=== PATIENT | female | born 1975 | race African-American/Black ===

== ENCOUNTER 2020-03-18 06:05 | Emergency (ER) | payer OTHER, SELFPAY ==
--- NOTE | ~2020-03-18 | XR_ITS ---
EXAMINATION: XR hip RT 2V w AP pelvis INDICATION: Right hip pain TECHNIQUE: AP view of the pelvis and two views of the right hip are obtained. COMPARISON: None available FINDINGS: Bone alignment is normal. There is no fracture. The soft tissues are unremarkable. There is mild spondylosis at L5-S1. IMPRESSION: 1. No acute osseous abnormality. Reviewed, dictated and finalized at location A.
[2020-03-18 06:06] VITALS: BP 108/60; PULSE 74; RESP 20; TEMP 36.7; O2SAT 100
[2020-03-18] MEDS: IBUPROFEN 600 MG TABLET PO (06:40)
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
[2020-03-18 07:33] VITALS: BP 118/86; PULSE 86; RESP 17; O2SAT 98
== END 2020-03-18 07:30 | disposition home or self-care (01) ==
PROVIDERS: Emergency Provider Emergency Medicine; PCP Family Medicine
DX: S70.01XA Contusion of right hip, initial encounter (principal); V49.40XA Driver injured in collision with unspecified motor vehicles in traffic accident, initial encounter
CPT/HCPCS: 73502; 99283; A9270

== ENCOUNTER 2020-06-15 15:46 | Outpatient (CLI) | payer OTHER, SELFPAY ==
--- NOTE | ~2020-06-15 | MM_ITS ---
EXAMINATION: MM screening kieran BI w amalia HISTORY: Screening mammogram TECHNIQUE: Craniocaudal and mediolateral oblique 3-D tomosynthesis images were obtained and synthetic 2-D images were generated. CAD analysis was submitted and interpreted. COMPARISON: 06/13/2019, 06/09/2018, 06/02/2017 bilateral digital screening mammogram examinations BREAST PARENCHYMAL COMPOSITION: There are scattered areas of fibroglandular density. FINDINGS: There is no evidence of suspicious mass, calcification, or architectural distortion to sugg est malignancy in either breast. There has been no suspicious interval change. IMPRESSION: 1. No mammographic evidence of malignancy. 2. Recommend routine screening mammography in one year. BI-RADS Category 1: Negative Reviewed, dictated and finalized at location A.
== END 2020-06-15 15:47 | disposition home or self-care (01) ==
LOC: ANHIMG 15:47
PROVIDERS: PCP Family Medicine; Visit Provider Student in an Organized Health Care Education/Training Program
DX: Z12.31 Encounter for screening mammogram for malignant neoplasm of breast (principal)
CPT/HCPCS: 77063; 77067

== ENCOUNTER 2021-06-18 15:50 | Outpatient (CLI) | payer OTHER, SELFPAY ==
--- NOTE | ~2021-06-18 | MM_ITS ---
EXAMINATION: MM screening kieran BI w amalia HISTORY: Screening mammogram TECHNIQUE: Craniocaudal and mediolateral oblique 3-D tomosynthesis images were obtained and synthetic 2-D images were generated. CAD analysis was submitted and interpreted. COMPARISON: 06/15/2020, 06/13/2019, 06/09/2018 bilateral digital screening mammogram examinations BREAST PARENCHYMAL COMPOSITION: There are scattered areas of fibroglandular density. FINDINGS: There is no evidence of suspicious mass, calcification, or architectural distortion to sugg est malignancy in either breast. There has been no suspicious interval change. IMPRESSION: 1. No mammographic evidence of malignancy. 2. Recommend routine screening mammography in one year. BI-RADS Category 1: Negative Reviewed, dictated and finalized at location A.
== END 2021-06-18 15:51 | disposition home or self-care (01) ==
LOC: ANHIMG 15:52
PROVIDERS: PCP Family Medicine; Visit Provider Student in an Organized Health Care Education/Training Program
DX: Z12.31 Encounter for screening mammogram for malignant neoplasm of breast (principal)
CPT/HCPCS: 77063; 77067

== ENCOUNTER 2022-07-23 16:17 | Outpatient (CLI) | payer BC, SELFPAY ==
--- NOTE | ~2022-07-23 | MM_ITS ---
EXAMINATION: MM screening kieran BI w amalia HISTORY: Screening mammogram TECHNIQUE: Craniocaudal and mediolateral oblique 3-D tomosynthesis images were obtained and synthetic 2-D images were generated. CAD analysis was submitted and interpreted. COMPARISON: 06/18/2021, 06/15/2020, 06/13/2019 bilateral screening mammogram examinations BREAST PARENCHYMAL COMPOSITION: There are scattered areas of fibroglandular density. FINDINGS: There is a 1 cm circumscribed low-density opacity with halo sign in the upper outer quadran t of the right breast at approximately 10:00 position. The mammographic appearance is benign. There i s no evidence of suspicious mass, calcification, or architectural distortion to suggest malignancy in either breast. There has been no suspicious interval change. IMPRESSION: 1. No mammographic evidence of malignancy. 2. Recommend routine screening mammography in one year. BI-RADS Category 2: Benign finding(s). Reviewed, dictated and finalized at location A. 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
== END 2022-07-23 16:18 | disposition home or self-care (01) ==
PROVIDERS: PCP Family Medicine; Visit Provider Student in an Organized Health Care Education/Training Program
DX: Z12.31 Encounter for screening mammogram for malignant neoplasm of breast (principal)
CPT/HCPCS: 77063; 77067

== ENCOUNTER 2023-07-27 14:44 | Outpatient (CLI) | payer BC, SELFPAY ==
--- NOTE | ~2023-07-27 | MM_ITS ---
EXAMINATION: MM screening kieran BI w amalia HISTORY: Screening mammogram TECHNIQUE: Craniocaudal and mediolateral oblique 3-D tomosynthesis images were obtained and synthetic 2-D images were generated. CAD analysis was submitted and interpreted. COMPARISON: 07/23/2022, 06/18/2021, 06/15/2020 bilateral screening mammogram examinations BREAST PARENCHYMAL COMPOSITION: There are scattered areas of fibroglandular density. FINDINGS: There is no evidence of suspicious mass, calcification, or architectural distortion to sugg est malignancy in either breast. There has been no suspicious interval change. IMPRESSION: 1. No mammographic evidence of malignancy. 2. Recommend routine screening mammography in one year. BI-RADS Category 1: Negative Reviewed, dictated and finalized at location A. 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
== END 2023-07-27 14:45 | disposition home or self-care (01) ==
LOC: CHSIMG 14:45
PROVIDERS: PCP Family Medicine; Visit Provider Family Medicine
DX: Z12.31 Encounter for screening mammogram for malignant neoplasm of breast (principal)
CPT/HCPCS: 77063; 77067

== ENCOUNTER 2023-08-28 09:34 | Emergency (ER) | payer BC, SELFPAY ==
[2023-08-28] VITALS (9 sets, daily range): BP systolic 104–141; BP diastolic 56–93; PULSE 63–89; RESP 13–20; TEMP 36.5; O2SAT 100
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
[2023-08-28] MEDS: SODIUM CHLORIDE 0.9% IV 1,000 ML 999 ML IV CONT ×2 (10:28→11:18)
[2023-08-28 10:33] LABS: Basophils Percent Auto 0.2 % (0.2-1.2); Eosinophils Percent Auto 0.2 % (0-4.4); Hematocrit 42.8 % (37.0-47.0); Hemoglobin 14.5 g/dL (12.0-15.0); Immature Granulocyte Absolute 0.02 K/mm3 (0.00-0.031); Immature Granulocyte Percent A 0.3 % (0-0.5); Lymphocytes Absolute Auto 1.67 K/mm3 (0.9-3.2); Lymphocytes Percent Auto 26.9 % (18.3-44.2); Mean Corpuscular HGB Conc 33.9 g/dl (32-36); Mean Corpuscular Hemoglobin 30.1 pg (26-34); Mean Platelet Volume 9.1 fl (7.4-10.4); Monocytes Absolute Auto 0.6 K/mm3 (0.1-0.6); Monocytes Percent Auto 10.3 % (2.6-8.5); Neutrophils Absolute Auto 3.9 K/mm3 (1.3-6.7); Neutrophils Percent Auto 62.1 % (45.5-73.1); Platelet Count Result 346 k/mm3 (150-375); Red Blood Count 4.81 M/mm3 (4.2-5.4); Red Cell Distribution Width 12.2 % (11.5-14.5); White Blood Count 6.2 K/mm3 (4.5-10.0)
[2023-08-28 11:00] LABS: Alanine Aminotransferase 33 U/L (6-35); Albumin Level 4.6 g/dL (3.5-5.1); Alkaline Phosphatase 50 U/L (38-126); Anion Gap 10 mmol/L (8-16); Aspartate Amino Transferase 36 U/L (14-36); Bilirubin,Total 1.1 mg/dL (0.2-1.3); Blood Urea Nitrogen 9 mg/dL (7-17); Calcium 9.5 mg/dL (8.4-10.2); Carbon Dioxide 27 mmol/L (22-30); Chloride 93 mmol/L (98-107); Estimated CRCL calculation 75 ml/min; Estimated Glomerular Filt Rate > 60; Glucose 125 mg/dL (65-110); Magnesium 2.1 mg/dL (1.6-2.3); Potassium 2.8 mmol/L (3.4-5.0); Sodium 130 mmol/L (137-145)
--- NOTE | 2023-08-28 11:01 | ECG_ITS ---
Measurements Intervals [place] Rate: 62 P: 70 NE: 171 QRS: 2 QRSD: 89 T: 71 QT: 503 QTc: 513 Interpretive Statements SINUS RHYTHM POSSIBLE LEFT ATRIAL ENLARGEMENT [-0.1mV P WAVE IN V1/V2] MODERATE T-WAVE ABNORMALITY, CONSIDER ANTEROLATERAL ISCHEMIA [-0.1+ mV T WAVE IN V3- V6] NO PREVIOUS ECG AVAILABLE FOR COMPARISON Electronically Signed On 08-28-2023 16:36:51 AIR EXPORT LOGISTICS MANAGER by Lencho oHlt M.D.
[2023-08-28] MEDS: POTASSIUM CHLORIDE 20 MEQ ER TABLET 40 MEQ PO (11:17)
[2023-08-28 11:20] LABS: Appearance Urine Cloudy (Clear); Bacteria Urine 1+ /hpf; Bilirubin Urine 1+ (Negative); Blood Urine 2+ (Negative); Color Urine Dark Yellow (Yellow); Glucose Urine UA Negative (Negative); Ketones Urine Trace mg/dL (Negative); Leukocyte Esterase Ur Trace LEU/UL (Negative); Need Manual Microscopic Reviewed; Nitrate Urine Negative (Negative); Non Pathogenic Casts >20; Protein Urine 1+ mg/dL (Negative); Specific Grav Ur 1.021 (1.001-1.035); Squamous Epithelial Cell Urine Occasional /hpf (Few)
[2023-08-28 11:21] LABS: Influenza A QL RT-PCR Negative (Negative); Influenza B QL RT-PCR Negative (Negative); RSV RNA, RT-PCR Negative (Negative); SARS-CoV-2 RNA PCR Negative (Negative)
[2023-08-28 11:36] LABS: Add Urine Microscopic? YES
[2023-08-28] MEDS: KCL 20 MEQ/SW 100 ML 100 ML 50 MEQ IVPB (11:50)
[2023-08-28 14:07] LABS: Anion Gap 8 mmol/L (8-16); Blood Urea Nitrogen 7 mg/dL (7-17); Calcium 8.4 mg/dL (8.4-10.2); Carbon Dioxide 26 mmol/L (22-30); Chloride 101 mmol/L (98-107); Estimated CRCL calculation 83 ml/min; Estimated Glomerular Filt Rate > 60; Glucose 98 mg/dL (65-110); Potassium 3.3 mmol/L (3.4-5.0); Sodium 135 mmol/L (137-145)
--- NOTE | 2023-08-28 15:02 | ECG_ITS ---
Measurements Intervals [place] Rate: 66 P: 60 NM: 172 QRS: -1 QRSD: 87 T: 68 QT: 404 QTc: 424 Interpretive Statements SINUS RHYTHM NONSPECIFIC T-WAVE ABNORMALITY COMPARED TO ECG 08/28/2023 11:09:33 NO SIGNIFICANT CHANGES Electronically Signed On 08-28-2023 16:43:16 ADJUNCT PHILOSOPHY FACULTY by Lencho Holt M.D.
[2023-08-28] MEDS: POTASSIUM CHLORIDE 20 MEQ PACKET (FOR LIQUID) PO (15:30)
[2023-08-28] MEDS: MAGNESIUM SULF 2 GM/WATER 50ML 2 GM/50 ML BAG IVPB (15:31)
== END 2023-08-28 17:25 | disposition home or self-care (01) ==
PROVIDERS: Emergency Provider Physician Assistant; PCP Family Medicine
DX: E87.6 Hypokalemia (principal); R63.0 Anorexia; G35 Multiple sclerosis; N31.9 Neuromuscular dysfunction of bladder, unspecified; M47.814 Spondylosis without myelopathy or radiculopathy, thoracic region; R94.31 Abnormal electrocardiogram [ECG] [EKG]
CPT/HCPCS: 36415; 80048; 80053; 81001; 81025; 83735; 85025; 87086; 87637; 93005; 96361; 96365; 96366; 96367; 99284; A9270; J3475; J3480; J7030

== ENCOUNTER 2023-10-05 01:34 | Day surgery (SDC) | payer BC, SELFPAY ==
[2023-09-08 14:24] VITALS: BMI 22.6
--- NOTE | 2023-10-02 09:09 | SUR.PREOP ---
Patient called regarding upcoming procedure. Reviewed preop instructions, appointment times, and procedure prep.
[2023-10-05 09:08] VITALS: BP 117/76; PULSE 86; RESP 16; TEMP 36.1; O2SAT 100; BMI 22.6
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
[2023-10-05] MEDS: LACTATED RINGERS 1,000 ML 150 ML IV CONT (09:33)
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
[2023-10-05 09:59] VITALS: BP 101/65; PULSE 90; RESP 23; O2SAT 100
[2023-10-05 10:09] VITALS: BP 110/62; PULSE 92; RESP 22; O2SAT 100
[2023-10-05 10:19] VITALS: BP 114/64; PULSE 82; RESP 23; O2SAT 98
== END 2023-10-05 10:27 | disposition home or self-care (01) ==
PROVIDERS: PCP Family Medicine; Visit Provider Internal Medicine Gastroenterology
PROC: 0DJD8ZZ Inspection of Lower Intestinal Tract, Via Natural or Artificial Opening Endoscopic (ICD-10-PCS; CPT 45378; principal; 2023-10-05 10:00)
DX: Z12.11 Encounter for screening for malignant neoplasm of colon (principal); K64.8 Other hemorrhoids; G35 Multiple sclerosis; N31.2 Flaccid neuropathic bladder, not elsewhere classified; F12.90 Cannabis use, unspecified, uncomplicated; Z79.85 Long-term (current) use of injectable non-insulin antidiabetic drugs; Z98.890 Other specified postprocedural states; Z82.49 Family history of ischemic heart disease and other diseases of the circulatory system; Z80.49 Family history of malignant neoplasm of other genital organs
CPT/HCPCS: 45378; J2704; J7120

== ENCOUNTER 2024-01-13 08:41 | Outpatient (CLI) | payer BC, SELFPAY | END 2024-01-13 08:42 | PROVIDERS: PCP Family Medicine; Visit Provider Nurse Practitioner Family | DX: M25.561 Pain in right knee (principal) | CPT/HCPCS: 73562 ==

== ENCOUNTER 2024-06-09 15:52 | Emergency (ER) | payer BC, SELFPAY ==
[2024-06-09 16:03] VITALS: BP 104/87; PULSE 75; RESP 16; TEMP 36.3; O2SAT 100
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
[2024-06-09] MEDS: ONDANSETRON INJ 4 MG/2 ML VIAL IV PUSH (16:39)
[2024-06-09] MEDS: LACTATED RINGERS 1,000 ML 999 ML IV CONT ×2 (16:40→17:44)
[2024-06-09 16:47] LABS: Basophils Percent Auto 0.1 % (0.2-1.2); Hematocrit 43.3 % (37.0-47.0); Hemoglobin 15.3 g/dL (12.0-15.0); Immature Granulocyte Absolute 0.02 K/mm3 (0.00-0.031); Immature Granulocyte Percent A 0.2 % (0-0.5); Lymphocytes Absolute Auto 0.93 K/mm3 (0.9-3.2); Lymphocytes Percent Auto 8.9 % (18.3-44.2); Mean Corpuscular HGB Conc 35.3 g/dl (32-36); Mean Corpuscular Hemoglobin 31.6 pg (26-34); Mean Corpuscular Volume 89.5 fl (80-100); Mean Platelet Volume 9.2 fl (7.4-10.4); Monocytes Absolute Auto 0.4 K/mm3 (0.1-0.6); Monocytes Percent Auto 3.5 % (2.6-8.5); Neutrophils Absolute Auto 9.1 K/mm3 (1.3-6.7); Neutrophils Percent Auto 87.3 % (45.5-73.1); Platelet Count Result 320 k/mm3 (150-375); Red Blood Count 4.84 M/mm3 (4.2-5.4); Red Cell Distribution Width 12.7 % (11.5-14.5); White Blood Count 10.4 K/mm3 (4.5-10.0)
[2024-06-09 16:57] LABS: Alanine Aminotransferase 30 U/L (6-35); Albumin Level 5.5 g/dL (3.5-5.1); Alkaline Phosphatase 81 U/L (38-126); Anion Gap 16 mmol/L (4-12); Aspartate Amino Transferase 41 U/L (14-36); Bilirubin,Total 1.1 mg/dL (0.2-1.3); Blood Urea Nitrogen 14 mg/dL (7-17); Calcium 9.6 mg/dL (8.4-10.2); Carbon Dioxide 21 mmol/L (22-30); Chloride 96 mmol/L (98-107); Estimated CRCL calculation 93 ml/min; Estimated Glomerular Filt Rate > 60; Glucose 147 mg/dL (65-110); Lipase 81 U/L (23-300); Potassium 3.3 mmol/L (3.4-5.0); Sodium 133 mmol/L (137-145)
[2024-06-09] MEDS: METOCLOPRAMIDE HCL INJ 10 MG/2 ML VIAL IV PUSH (17:45)
[2024-06-09] MEDS: POTASSIUM CHLORIDE 20 MEQ ER TABLET 40 MEQ PO (17:45)
[2024-06-09 17:47] VITALS: BP 137/78; PULSE 68; RESP 16; TEMP 36.3
[2024-06-09 19:06] VITALS: BP 120/68; PULSE 70; RESP 18; TEMP 36.4; O2SAT 100
== END 2024-06-09 19:08 | disposition home or self-care (01) ==
PROVIDERS: Emergency Provider Emergency Medicine; PCP Family Medicine
DX: R11.2 Nausea with vomiting, unspecified (principal); E87.6 Hypokalemia; G35 Multiple sclerosis; N31.9 Neuromuscular dysfunction of bladder, unspecified; Z86.73 Personal history of transient ischemic attack (TIA), and cerebral infarction without residual deficits; Z91.410 Personal history of adult physical and sexual abuse; Z79.82 Long term (current) use of aspirin; Z79.02 Long term (current) use of antithrombotics/antiplatelets; Z79.899 Other long term (current) drug therapy
CPT/HCPCS: 36415; 80053; 83690; 85025; 96361; 96374; 96375; 99284; A9270; J2405; J2765; J7120

== ENCOUNTER 2024-07-02 19:43 | Emergency (ER) | payer BC, SELFPAY ==
[2024-07-02] VITALS (13 sets, daily range): BP systolic 107–140; BP diastolic 57–91; PULSE 75–95; RESP 14–18; TEMP 36.3; O2SAT 91–100
[2024-07-02 20:43] LABS: Basophils Percent Auto 0.2 % (0.2-1.2); Hematocrit 38.2 % (37.0-47.0); Hemoglobin 13.8 g/dL (12.0-15.0); Immature Granulocyte Absolute 0.02 K/mm3 (0.00-0.031); Immature Granulocyte Percent A 0.2 % (0-0.5); Lymphocytes Absolute Auto 0.65 K/mm3 (0.9-3.2); Lymphocytes Percent Auto 7.5 % (18.3-44.2); Mean Corpuscular HGB Conc 36.1 g/dl (32-36); Mean Corpuscular Hemoglobin 31.6 pg (26-34); Mean Corpuscular Volume 87.4 fl (80-100); Mean Platelet Volume 9.3 fl (7.4-10.4); Monocytes Absolute Auto 0.4 K/mm3 (0.1-0.6); Monocytes Percent Auto 4.5 % (2.6-8.5); Neutrophils Absolute Auto 7.6 K/mm3 (1.3-6.7); Neutrophils Percent Auto 87.6 % (45.5-73.1); Platelet Count Result 289 k/mm3 (150-375); Red Blood Count 4.37 M/mm3 (4.2-5.4); Red Cell Distribution Width 12.6 % (11.5-14.5); White Blood Count 8.7 K/mm3 (4.5-10.0)
[2024-07-02 20:53] LABS: Alanine Aminotransferase 27 U/L (6-35); Albumin Level 4.7 g/dL (3.5-5.1); Alkaline Phosphatase 65 U/L (38-126); Anion Gap 16 mmol/L (4-12); Aspartate Amino Transferase 31 U/L (14-36); Bilirubin,Total 0.9 mg/dL (0.2-1.3); Blood Urea Nitrogen 12 mg/dL (7-17); Calcium 9.8 mg/dL (8.4-10.2); Carbon Dioxide 20 mmol/L (22-30); Chloride 98 mmol/L (98-107); Estimated CRCL calculation 93 ml/min; Estimated Glomerular Filt Rate > 60; Glucose 156 mg/dL (65-110); INR 1.1; Lipase 84 U/L (23-300); Magnesium 1.7 mg/dL (1.6-2.3); Potassium 3.2 mmol/L (3.4-5.0); Prothrombin Time 14.2 Seconds (11.1-14.7); Sodium 134 mmol/L (137-145)
[2024-07-02 20:54] LABS: Partial Thromboplastin Time 26.7 Seconds (22.3-36.8)
[2024-07-02 21:08] LABS: Add Urine Microscopic? NO; Appearance Urine Clear (Clear); Bilirubin Urine Negative (Negative); Blood Urine Negative (Negative); Color Urine Yellow (Yellow); Glucose Urine UA Negative (Negative); Ketones Urine 3+ mg/dL (Negative); Leukocyte Esterase Ur Negative LEU/UL (Negative); Nitrate Urine Negative (Negative); Protein Urine Negative (Negative); Specific Grav Ur 1.014 (1.001-1.035); pH Urine 8.5 (5.0-9.0)
[2024-07-02] MEDS: POTASSIUM CHLORIDE 20 MEQ PACKET (FOR LIQUID) PO (21:09)
[2024-07-02] MEDS: ONDANSETRON INJ 4 MG/2 ML VIAL IV PUSH (21:10)
[2024-07-02] MEDS: SODIUM CHLORIDE 0.9% IV 1,000 ML 999 ML IV CONT ×2 (21:10→22:37)
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
[2024-07-02] MEDS: FAMOTIDINE 20 MG/2 ML VIAL IV PUSH (22:36)
[2024-07-02 23:07] LABS: Pregnancy On Board Control Positive; Urine Pregnancy Test Negative
[2024-07-02] MEDS: METOCLOPRAMIDE HCL INJ 10 MG/2 ML VIAL IV PUSH (23:18)
--- NOTE | 2024-07-02 23:32 | PC.NURSE ---
Report received from WILLIE Emerson. Assumed care of patient at this time.
[2024-07-03] VITALS: O2SAT 95
== END 2024-07-03 00:16 | disposition home or self-care (01) ==
PROVIDERS: Emergency Medicine; Emergency Provider Physician Assistant; PCP Family Medicine
DX: E86.0 Dehydration (principal); R11.2 Nausea with vomiting, unspecified; G35 Multiple sclerosis; Z86.73 Personal history of transient ischemic attack (TIA), and cerebral infarction without residual deficits
CPT/HCPCS: 36415; 80053; 81003; 81025; 83690; 83735; 85025; 85610; 85730; 96361; 96374; 96375; 99284; A9270; J2405; J2765; J7030

== ENCOUNTER 2024-07-05 12:59 | Emergency (ER) | payer BC, SELFPAY ==
[2024-07-05 13:04] VITALS: BP 117/86; PULSE 80; RESP 20; TEMP 37.1; O2SAT 100
[2024-07-05 13:13] VITALS: RESP 17; O2SAT 98
[2024-07-05 13:16] VITALS: BP 111/77; PULSE 89; RESP 18; O2SAT 98
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
[2024-07-05 14:09] LABS: Basophils Percent Auto 0.3 % (0.2-1.2); Eosinophils Percent Auto 0.3 % (0-4.4); Hematocrit 41.3 % (37.0-47.0); Hemoglobin 14.1 g/dL (12.0-15.0); Immature Granulocyte Absolute 0.02 K/mm3 (0.00-0.031); Immature Granulocyte Percent A 0.3 % (0-0.5); Lymphocytes Absolute Auto 1.24 K/mm3 (0.9-3.2); Lymphocytes Percent Auto 19.1 % (18.3-44.2); Mean Corpuscular HGB Conc 34.1 g/dl (32-36); Mean Corpuscular Hemoglobin 30.7 pg (26-34); Mean Corpuscular Volume 89.8 fl (80-100); Mean Platelet Volume 9.7 fl (7.4-10.4); Monocytes Absolute Auto 0.7 K/mm3 (0.1-0.6); Monocytes Percent Auto 10.5 % (2.6-8.5); Neutrophils Absolute Auto 4.5 K/mm3 (1.3-6.7); Neutrophils Percent Auto 69.5 % (45.5-73.1); Platelet Count Result 327 k/mm3 (150-375); Red Cell Distribution Width 12.6 % (11.5-14.5); White Blood Count 6.5 K/mm3 (4.5-10.0)
[2024-07-05 14:19] LABS: Alanine Aminotransferase 26 U/L (6-35); Alkaline Phosphatase 66 U/L (38-126); Anion Gap 13 mmol/L (4-12); Aspartate Amino Transferase 33 U/L (14-36); Bilirubin,Total 1.1 mg/dL (0.2-1.3); Blood Urea Nitrogen 6 mg/dL (7-17); Calcium 9.9 mg/dL (8.4-10.2); Carbon Dioxide 25 mmol/L (22-30); Chloride 95 mmol/L (98-107); Estimated CRCL calculation 81 ml/min; Estimated Glomerular Filt Rate > 60; Glucose 126 mg/dL (65-110); Lipase 105 U/L (23-300); Magnesium 1.9 mg/dL (1.6-2.3); Potassium 3.1 mmol/L (3.4-5.0); Sodium 133 mmol/L (137-145)
[2024-07-05] MEDS: diphenhydrAMINE HCl INJ 50 MG/ML VIAL 25 MG IV PUSH (14:22)
[2024-07-05] MEDS: HALOPERIDOL LACTATE 5 MG/ML VIAL 2.5 MG IV PUSH (14:22)
[2024-07-05 14:26] VITALS: BP 116/80; PULSE 77; RESP 17; O2SAT 100
[2024-07-05] MEDS: POTASSIUM BICARBONATE 25 MEQ TABEF 50 MEQ PO (14:41)
== END 2024-07-05 15:06 | disposition home or self-care (01) ==
PROVIDERS: Emergency Provider Student in an Organized Health Care Education/Training Program; PCP Family Medicine
DX: R11.0 Nausea (principal); E87.6 Hypokalemia; E87.1 Hypo-osmolality and hyponatremia; G35 Multiple sclerosis; N31.9 Neuromuscular dysfunction of bladder, unspecified; Q21.12 Patent foramen ovale; Q21.19 Other specified atrial septal defect; Z86.73 Personal history of transient ischemic attack (TIA), and cerebral infarction without residual deficits; Z79.82 Long term (current) use of aspirin; Z79.899 Other long term (current) drug therapy
CPT/HCPCS: 36415; 80053; 83690; 83735; 85025; 96374; 96375; 99284; A9270; J1200; J1630

== ENCOUNTER 2024-07-07 11:26 | Observation (INO) | payer BC, SELFPAY ==
[2024-07-07 11:36] VITALS: BP 132/85; PULSE 70; RESP 20; TEMP 36.8; O2SAT 100
[2024-07-07 11:55] LABS: Basophils Percent Auto 0.3 % (0.2-1.2); Eosinophils Percent Auto 0.5 % (0-4.4); Hemoglobin 15.2 g/dL (12.0-15.0); Immature Granulocyte Absolute 0.02 K/mm3 (0.00-0.031); Immature Granulocyte Percent A 0.3 % (0-0.5); Lymphocytes Absolute Auto 1.27 K/mm3 (0.9-3.2); Lymphocytes Percent Auto 19.8 % (18.3-44.2); Mean Corpuscular HGB Conc 35.3 g/dl (32-36); Mean Corpuscular Hemoglobin 31.3 pg (26-34); Mean Corpuscular Volume 88.7 fl (80-100); Mean Platelet Volume 9.1 fl (7.4-10.4); Monocytes Absolute Auto 0.7 K/mm3 (0.1-0.6); Monocytes Percent Auto 10.7 % (2.6-8.5); Neutrophils Absolute Auto 4.4 K/mm3 (1.3-6.7); Neutrophils Percent Auto 68.4 % (45.5-73.1); Platelet Count Result 330 k/mm3 (150-375); Red Blood Count 4.85 M/mm3 (4.2-5.4); Red Cell Distribution Width 12.5 % (11.5-14.5); White Blood Count 6.4 K/mm3 (4.5-10.0)
[2024-07-07 12:06] LABS: Alanine Aminotransferase 28 U/L (6-35); Alkaline Phosphatase 70 U/L (38-126); Anion Gap 12 mmol/L (4-12); Aspartate Amino Transferase 31 U/L (14-36); Bilirubin,Total 1.1 mg/dL (0.2-1.3); Blood Urea Nitrogen 10 mg/dL (7-17); Calcium 9.9 mg/dL (8.4-10.2); Carbon Dioxide 27 mmol/L (22-30); Chloride 93 mmol/L (98-107); Estimated CRCL calculation 68 ml/min; Estimated Glomerular Filt Rate > 60; Glucose 130 mg/dL (65-110); Potassium 3.3 mmol/L (3.4-5.0); Sodium 132 mmol/L (137-145)
[2024-07-07] MEDS: POTASSIUM CHLORIDE 20 MEQ ER TABLET 40 MEQ PO (12:45)
[2024-07-07] MEDS: METOCLOPRAMIDE HCL INJ 10 MG/2 ML VIAL IV PUSH ×2 (13:21→17:50)
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
[2024-07-07 13:50] VITALS: BP 144/77; PULSE 75; RESP 18; TEMP 36.8; O2SAT 99
--- NOTE | 2024-07-07 14:04 | PC.NURSE ---
This patient, Winter Samaniego, was admitted to [address] [place] [address] Room 300-01. Patient/family oriented to hospital policies and general routines including ID bracelet, bed and alarms, visiting hours, pain management, procedures, bathroom and other care routines, personal items, smoking policy, room service/diet, and visiting hours. Information on how to activate the Rapid Response Team has been discussed. Patient/Family are encouraged to report perceived risks to care and to ask questions if they do not understand what they are told or what they should do.
[2024-07-07] MEDS: LACTATED RINGERS 1,000 ML 75 ML IV CONT (16:05)
[2024-07-07 16:48] LABS: Barbiturate Screen Urine Negative (Negative)
[2024-07-07 16:53] LABS: Benzodiazepines Screen Urine Negative (Negative)
[2024-07-07 17:21] LABS: Amphetamine Screen Urine Negative (Negative); Cannabinoid Screen Urine Positive (Negative); Cocaine Screen Urine Negative (Negative); Methadone Screen Urine Negative (Negative); Opiate Screen Urine Negative (Negative); Phencyclidine Screen Urine Negative (Negative)
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
[2024-07-07 20:51] VITALS: BP 120/75; PULSE 90; RESP 14; TEMP 36.7; O2SAT 97
--- NOTE | 2024-07-08 00:10 | PC.NURSE ---
Pt reports reglan may be giving her hot flashes and refuses to take at this time. Reports only mild nausea. PRN benadryl offered, pt agreeable.
[2024-07-08] MEDS: diphenhydrAMINE HCl INJ 50 MG/ML VIAL 25 MG IV PUSH ×2 (00:13→06:55)
[2024-07-08 05:22] VITALS: BP 116/75; PULSE 56; RESP 13; TEMP 36.2; O2SAT 98
[2024-07-08 06:49] LABS: Basophils Percent Auto 0.5 % (0.2-1.2); Eosinophils Absolute Auto 0.2 K/mm3 (0-0.3); Eosinophils Percent Auto 2.5 % (0-4.4); Hematocrit 39.2 % (37.0-47.0); Hemoglobin 13.4 g/dL (12.0-15.0); Lymphocytes Absolute Auto 1.51 K/mm3 (0.9-3.2); Lymphocytes Percent Auto 24.8 % (18.3-44.2); Mean Corpuscular HGB Conc 34.2 g/dl (32-36); Mean Corpuscular Hemoglobin 31.1 pg (26-34); Mean Platelet Volume 9.3 fl (7.4-10.4); Monocytes Absolute Auto 0.9 K/mm3 (0.1-0.6); Neutrophils Absolute Auto 3.5 K/mm3 (1.3-6.7); Neutrophils Percent Auto 58.2 % (45.5-73.1); Platelet Count Result 296 k/mm3 (150-375); Red Blood Count 4.31 M/mm3 (4.2-5.4); Red Cell Distribution Width 12.4 % (11.5-14.5); White Blood Count 6.1 K/mm3 (4.5-10.0)
[2024-07-08 07:08] LABS: Anion Gap 7 mmol/L (4-12); Blood Urea Nitrogen 7 mg/dL (7-17); Calcium 9.1 mg/dL (8.4-10.2); Carbon Dioxide 28 mmol/L (22-30); Chloride 96 mmol/L (98-107); Estimated CRCL calculation 91 ml/min; Estimated Glomerular Filt Rate > 60; Glucose 104 mg/dL (65-110); Potassium 3.4 mmol/L (3.4-5.0); Sodium 131 mmol/L (137-145)
[2024-07-08 07:10] LABS: Hemoglobin A1C 5.9 % (<5.7)
[2024-07-08] MEDS: FAMOTIDINE 20 MG TABLET PO ×2 (09:01→21:46)
[2024-07-08] MEDS: polyethylene glycoL 3350 17 GM POWD.PACK PO (09:01)
[2024-07-08] MEDS: POTASSIUM CHLORIDE 10 MEQ ER TABLET PO (09:01)
[2024-07-08] MEDS: DOCUSATE SODIUM 100 MG CAPSULE PO ×2 (09:01→21:46)
[2024-07-08] MEDS: CHOLECALCIFEROL 5,000 UNITS TABLET 5000 UNITS PO (09:04)
[2024-07-08 09:30] VITALS: O2SAT 97
--- NOTE | 2024-07-08 09:58 | PM.IMPN ---
Progress Note: A&P Assessment and Plan (1) Nausea & vomiting: Code(s): R11.2 - Nausea with vomiting, unspecified Status: Acute Assessment and Plan: - no leukocytosis, Hgb 15.2, and renal function preserved. mild hypokalemia at 3.3, given 40 PO. Continued home dose of 10 daily. Trend electrolytes and renal function. - add A1C, UDS, and TSH - antiemetics 1- metoclopramide 2 - Benadryl - UDS positive for marijuana. patient has not noticed a correlation with consumption and nausea. counseled on hyperemesis related to marijuana, will need cessation if she notices that marijuana is a trigger. - bland diet (2) Prediabetes: Code(s): R73.03 - Prediabetes Status: Acute Assessment and Plan: hga1c- 5.9 diab education provided - advised to avoid sugary drinks, increase fruits/veggies, lean protein consumption, water -will need f/u with pcp Plan Diet: bland GI Prophylaxis: continue home famotidine DVT Prophylaxis: SCDs Lines: peripheral Code Status: full code Time Spent With Patient Time with patient: Greater than 35 minutes Subjective Date/time seen: 07/08/24 09:58 Interval history: Narrative retrieved from H/P: 48 y/o F presents here with nausea and vomiting with PMH of multiple sclerosis, neurogenic bladder, stroke (01/03/24), and PFO w/atrial septal aneurysm. The patient presents here with persistent nausea and vomiting. Initially started around Jun 09 and subsided for a time, then returned on (06/30). Has been seen at [place] [facility] for this same issue on 06/09/24, 07/02/24, 07/04/24, and 07/05/24. Patient was hydrated and given antiemetics with these visits and discharged home. Patient then followed up with her PCP Jasen Aguilar MD who recommended admission for 3-4 days to settle the current issue down. Given patient's history of MS there is some concern that her underlying autonomic dysfunction may be the underlying cause vs an atypical abdominal migraine. He also voiced concerns for failure to thrive given she has had 10 lbs of weight loss in approximately 5 days. Nausea and vomiting are accompanied by chills, fatigue/lethargy, body aches, and anorexia. LBM was on Thursday and was hard/small. No associated abdominal pain. Initial VS at presentation: 98.3? F, HR 70, RR 20, 132/85, and 100% on RA. ED workup showed: No leukocytosis, hemoglobin 15.2, sodium 132, potassium 3.3, creatinine 0.9 and GFR >60, glucose 130. 11/8- pt is seen and examined- reglan is not working for her nausea- wants to try something else. no other acute complains Review of Systems Review of Systems: All systems reviewed & are unremarkable except as noted in HPI and below Exam Narrative: no abdominal distention or tenderness. Const: General: comfortable and no acute distress Other: Nontoxic appearance, female. HENMT: Face/Nose/Sinus: Normal nares present Mouth: Yes moist mucous membranes Eyes: General: appearance normal, both eyes and all related structures Sclera: sclerae normal Pupils: Equal, round and reactive pupils present EOM: EOMs intact bilaterally Resp: Effort & Inspection: normal respiratory effort Auscultation: clear to auscultation bilaterally Cardio: Rate: regular rate Rhythm: regular rhythm Other: S1-S2 present without murmur, rub, ectopy GI: Other: Abdomen soft, nondistended, nontender. No active vomiting. Skin: General skin exam: normal color and no rashes or lesions noted Wounds: no wounds Neuro: Cranial nerves: Yes Equal, round and reactive pupils present Speech: normal speech Motor exam (neuro): 5/5 motor strength present throughout Sensory Exam: normal sensation Other: A&O x4 Extrem: General: normal to inspection Psych: Mental Status: mental status grossly normal Affect: normal affect Other: Good insight and judgment, pleasant Objective Data Vital Signs Vital Signs: Vital Signs - 24 hr 07/07/24 11:36 07/07/24 13:50 07/07/24 17:35 Temperature 98.3 F 98.2 F Pulse Rate 70 75 Respiratory Rate 20 18 Blood Pressure 132/85 144/77 H Pulse Oximetry 100 99 Oxygen Delivery Room Air Room Air 07/07/24 20:51 07/08/24 05:22 07/08/24 09:30 Temperature 98.1 F 97.1 F L Pulse Rate 90 56 L Respiratory Rate 14 13 Blood Pressure 120/75 116/75 Pulse Oximetry 97 98 97 Oxygen Delivery Room Air Intake/Output Intake/Output: Intake & Output 07/05/24 07/06/24 07/07/24 07/08/24 23:59 23:59 23:59 23:59 Intake Total 250 1350 Balance 250 1350 Meds/Results Medications: Active Medications Generic Name Dose Route Start Last Admin Trade Name Freq PRN Reason Stop Dose Admin Acetaminophen 1,000 mg 07/07/24 14:05 Acetaminophen 500 Mg Tablet PO Q6H PRN Mild Pain (1-3) or Fever Al Hydrox/Mg Hydrox/Simethicone 10 ml 07/07/24 22:56 Mag Hydrox/Al Hydrox/Simeth 30 Ml Udc PO QID PRN dyspepsia Aspirin 81 mg 07/08/24 21:00 Aspirin 81 Mg Enteric Tablet PO QHS [facility] Atorvastatin Calcium 80 mg 07/08/24 21:00 Atorvastatin 40 Mg Tablet PO QHS [facility] Diphenhydramine HCl 25 mg 07/07/24 14:03 07/08/24 06:55 Diphenhydramine Hcl Inj 50 Mg/Ml Vial IV PUSH 25 mg Q4H PRN Administration Nausea And Vomiting Docusate Sodium 100 mg 07/08/24 09:00 07/08/24 09:01 Docusate Sodium 100 Mg Capsule PO 100 mg Q12HR [facility] Administration Famotidine 20 mg 07/08/24 09:00 07/08/24 09:01 Famotidine 20 Mg Tablet PO 20 mg Q12HR [facility] Administration Ondansetron HCl 4 mg 07/08/24 09:55 Ondansetron Inj 4 Mg/2 Ml Vial IV PUSH Q4H PRN Nausea And Vomiting Polyethylene Glycol 17 gm 07/08/24 09:00 07/08/24 09:01 Polyethylene Glycol 3350 17 Gm Powd.Pack PO 17 gm QAM GWENDOLYN Administration Potassium Chloride 10 meq 07/08/24 09:00 07/08/24 09:01 Potassium Chloride 10 Meq Er Tablet PO 08/07/24 08:59 10 meq DAILY [facility] Administration Prochlorperazine Edisylate 10 mg 07/08/24 09:54 Prochlorperazine Edisylate 10 Mg/2 Ml Vial IV PUSH Q6H PRN Nausea And Vomiting Vitamin D 5,000 units 07/08/24 09:00 07/08/24 09:04 Cholecalciferol 5,000 Units Tablet PO 5,000 units MoWeFr [facility] Administration Labs Labs: Laboratory Results - last 24 hr 07/07/24 07/07/24 07/08/24 11:47 15:12 05:43 WBC 6.4 6.1 RBC 4.85 4.31 Hgb 15.2 H 13.4 Hct 43.0 39.2 MCV 88.7 91.0 MCH 31.3 31.1 MCHC 35.3 34.2 RDW 12.5 12.4 Plt Count 330 296 MPV 9.1 9.3 Immature Gran % (Auto) 0.3 0.0 Neut % (Auto) 68.4 58.2 Lymph % (Auto) 19.8 24.8 [place] % (Auto) 10.7 H 14.0 H Eos % (Auto) 0.5 2.5 Baso % (Auto) 0.3 0.5 Lymph # (Auto) 1.27 1.51 [place] # (Auto) 0.7 H 0.9 H Eos # (Auto) 0.0 0.2 Baso # (Auto) 0.0 0.0 Abs Immat Gran (auto) 0.02 0.00 Absolute Neuts (auto) 4.4 3.5 Absolute Nucleated RBC 0.000 0.000 Nucleated RBC % 0.0 0.0 Sodium 132 L 131 L Potassium 3.3 L 3.4 Chloride 93 L 96 L Carbon Dioxide 27 28 Anion Gap 12 7 BUN 10 7 Creatinine 0.90 0.70 Estim Creat Clear Calc 68 91 Estimated GFR > 60 > 60 Glucose 130 H 104 Hemoglobin A1c 5.9 H Calcium 9.9 9.1 Total Bilirubin 1.1 AST 31 ALT 28 Alkaline Phosphatase 70 Total Protein 8.0 Albumin 5.0 TSH (Reflex) 1.160 Urine Opiates Screen Negative Urine Methadone Screen Negative Ur Barbiturates Screen Negative Ur Phencyclidine Scrn Negative Ur Amphetamine Screen Negative U Benzodiazepines Scrn Negative Urine Cocaine Screen Negative U Cannabinoids Screen Positive A Quality VTE Prophylaxis VTE prophylaxis: mechanical ordered
[2024-07-08] MEDS: ONDANSETRON INJ 4 MG/2 ML VIAL IV PUSH (10:00)
[2024-07-08 13:45] VITALS: BP 112/66; PULSE 90; RESP 18; TEMP 35.8; O2SAT 100
[2024-07-08 21:00] VITALS: BP 106/83; PULSE 106; RESP 14; TEMP 36.7; O2SAT 98
[2024-07-08] MEDS: ASPIRIN 81 MG ENTERIC TABLET PO (21:46)
[2024-07-08] MEDS: ATORVASTATIN 40 MG TABLET 80 MG PO (21:47)
[2024-07-09 05:26] VITALS: BP 108/85; PULSE 86; RESP 14; TEMP 36.4; O2SAT 98
[2024-07-09 08:00] VITALS: PULSE 86; RESP 14; O2SAT 98
[2024-07-09] MEDS: polyethylene glycoL 3350 17 GM POWD.PACK PO (09:23)
[2024-07-09] MEDS: FAMOTIDINE 20 MG TABLET PO (09:23)
[2024-07-09] MEDS: POTASSIUM CHLORIDE 10 MEQ ER TABLET PO (09:24)
[2024-07-09] MEDS: DOCUSATE SODIUM 100 MG CAPSULE PO (09:24)
--- NOTE | 2024-07-09 13:19 | P.DS_ITS ---
DS: Admitting Diagnosis Discharge Date 07/09 Admitting Diagnosis dehydration DS: Discharge Diagnosis Discharge Diagnosis (1) Nausea & vomiting: Code(s): R11.2 - Nausea with vomiting, unspecified Status: Acute (2) Prediabetes: Code(s): R73.03 - Prediabetes Status: Acute DS: Summary Hospital Course Hospital Course: 48 y/o F presents here with nausea and vomiting with PMH of multiple sclerosis, neurogenic bladder, stroke (01/03/24), and PFO w/atrial septal aneurysm. The patient presents here with persistent nausea and vomiting. Initially started around Jun 09 and subsided for a time, then returned on (06/30). Has been seen at [place] [facility] for this same issue on 06/09/24, 07/02/24, 07/04/24, and 07/05/24. Patient was hydrated and given antiemetics with these visits and discharged home. Patient then followed up with her PCP Jasen Aguilar MD who recommended admission for 3-4 days to settle the current issue down. Given patient's history of MS there is some concern that her underlying autonomic dysfunction may be the underlying cause vs an atypical abdominal migraine. He also voiced concerns for failure to thrive given she has had 10 lbs of weight loss in approximately 5 days. Nausea and vomiting are accompanied by chills, fatigue/lethargy, body aches, and anorexia. LBM was on Thursday and was hard/small. No associated abdominal pain. Initial VS at presentation: 98.3? F, HR 70, RR 20, 132/85, and 100% on RA. ED workup showed: No leukocytosis, hemoglobin 15.2, sodium 132, potassium 3.3, creatinine 0.9 and GFR >60, glucose 130. 07/09- pt felt well enough to be discharged. Need to cut down or limit marijauana use and f/u with pcp. Labs were stable- k slightly low- she was advised to improve diet and have to rechecked with pcp Status at Discharge Functional status at discharge: independent ambulation Overall status at discharge: patient is progressing back to baseline Time Spent with Patient Time attestation: Total time spent providing and/or coordinating discharge services: Exam Narrative: no abdominal distention or tenderness. Const: General: comfortable and no acute distress Other: Nontoxic appearance, female. HENMT: Face/Nose/Sinus: Normal nares present Mouth: Yes moist mucous membranes Eyes: General: appearance normal, both eyes and all related structures Sclera: sclerae normal Pupils: Equal, round and reactive pupils present EOM: EOMs intact bilaterally Resp: Effort & Inspection: normal respiratory effort Auscultation: clear to auscultation bilaterally Cardio: Rate: regular rate Rhythm: regular rhythm Other: S1-S2 present without murmur, rub, ectopy GI: Other: Abdomen soft, nondistended, nontender. No active vomiting. Skin: General skin exam: normal color and no rashes or lesions noted Wounds: no wounds Neuro: Cranial nerves: Yes Equal, round and reactive pupils present Speech: normal speech Motor exam (neuro): 5/5 motor strength present throughout Sensory Exam: normal sensation Other: A&O x4 Extrem: General: normal to inspection Psych: Mental Status: mental status grossly normal Affect: normal affect Other: Good insight and judgment, pleasant Discharge Plan Discharge Discharging Clinician: Dolly Donovan Patient Disposition: Home, Self-Care Activity: may shower Diet: as tolerated and diabetic Discharge Instructions: You were admitted for dehydration. Your potassium level was a little low- so please ensure you eat well balanced meals. Have your PCP recheck it. Please decrease or limit your marijuana use- as it might cause nausea for you! Patient Instructions: Antibiotic Form Stand Alone Forms: General Discharge Information Follow-up/Referrals: Harinder Aguilar MD [Primary Care Provider] - 2 Weeks Discharge Medications: Continued Kesimpta Pen 20 mg/0.4 mL pen injector 20 mg subcut MONTHLY Patient Comments: next dose 07/15/24 aspirin 81 mg tablet,delayed release (DR/EC) 81 mg PO QHS atorvastatin 80 mg tablet 80 mg PO QHS Qty: 90 3RF cholecalciferol (vitamin D3) 125 mcg (5,000 unit) capsule 125 mcg PO QMWF alum-mag hydroxide-simeth [Maalox Advanced] 200-200-20 mg/5 mL suspension 10 ml PO QID PRN (Reason: dyspepsia) Qty: 100 0RF Rx Instructions: administer between meals and at bedtime famotidine 20 mg tablet 20 mg PO BID Qty: 30 1RF metoclopramide HCl [Reglan] 10 mg tablet 10 mg PO Q6H PRN (Reason: nausea and vomiting) Qty: 14 0RF potassium chloride 10 mEq capsule, extended release 10 meq PO DAILY Qty: 5 0RF Date of admission: 07/07/24 12:50 Primary Care Provider: Harinder Aguilar Admitting Provider: Jose Culp Attending physician on admission: Jose Culp Condition: Stable Quality VTE Prophylaxis VTE prophylaxis: mechanical ordered Hospitalist MIPS Heart Failure (Exclusion) Patient has history of Heart Transplant or Left Ventricular Assistive Device?: No IF YES, STOP HERE Heart Failure (Qualifier) Patient has current or prior documentation of LVEF less than or equal to 40%, or mod/servere depressed LVSF?: No IF NO, STOP HERE
[2024-07-09 14:00] VITALS: BP 142/83; PULSE 82; RESP 16; TEMP 36.8; O2SAT 100
== END 2024-07-09 15:15 | disposition home or self-care (01) ==
LOC: ANHED 12:06 → ANH3MEDSUR 13:20
PROVIDERS: Nurse Practitioner; Student in an Organized Health Care Education/Training Program; Admitting Provider Internal Medicine; Emergency Provider Emergency Medicine; PCP Family Medicine; Visit Provider Internal Medicine
DX: E86.0 Dehydration (principal); E87.6 Hypokalemia; R11.2 Nausea with vomiting, unspecified; R73.03 Prediabetes; R62.7 Adult failure to thrive; Z68.20 Body mass index [BMI] 20.0-20.9, adult; F12.90 Cannabis use, unspecified, uncomplicated; G35 Multiple sclerosis; N31.9 Neuromuscular dysfunction of bladder, unspecified; Q21.12 Patent foramen ovale; Z86.73 Personal history of transient ischemic attack (TIA), and cerebral infarction without residual deficits; Z79.82 Long term (current) use of aspirin; Z79.899 Other long term (current) drug therapy
CPT/HCPCS: 36415; 80048; 80053; 80307; 83036; 84443; 85025; 87338; 96361; 96374; 96375; 96376; 99285; A9270; G0378; J1200; J2405; J2765; J7120

== ENCOUNTER 2024-08-02 14:21 | Outpatient (CLI) | payer BC, SELFPAY ==
--- NOTE | ~2024-08-02 | MM_ITS ---
EXAMINATION: MM screening kieran BI w amalia HISTORY: Screening TECHNIQUE: Craniocaudal and mediolateral oblique 3-D tomosynthesis images were obtained and synthetic 2-D images were generated. CAD analysis was submitted and interpreted. COMPARISON: Comparison to multiple prior studies sequentially, with oldest reviewed study dated 05/31. BREAST PARENCHYMAL COMPOSITION: Dense: The breasts are heterogeneously dense, which may obscure small masses FINDINGS: There is no evidence of suspicious mass, calcification, or architectural distortion to sugg est malignancy in either breast. There has been no suspicious interval change. IMPRESSION: 1. No mammographic evidence of malignancy. 2. Recommend routine screening mammography in one year. BI-RADS Category 1: Negative Reviewed, dictated and finalized at location B. [facility]
== END 2024-08-02 14:22 | disposition home or self-care (01) ==
PROVIDERS: PCP Family Medicine; Visit Provider Obstetrics & Gynecology
DX: Z12.31 Encounter for screening mammogram for malignant neoplasm of breast (principal)
CPT/HCPCS: 77063; 77067

== ENCOUNTER 2024-08-03 09:49 | Outpatient (CLI) | payer BC, SELFPAY ==
--- NOTE | ~2024-08-03 | CT_ITS ---
CT of the Abdomen and Pelvis: Indication: Nausea Technique: 2.5 mm axial scans were obtained through the abdomen and pelvis following intravenous adm inistration of 100 cc of Omnipaque 350. Dose reduction technique was used on this scan by utilizing a utomated exposure control and iterative reconstruction technique. The dose-length product (DLP) was 2 46.14 mGy-cm. Findings: Scans through the lung bases are unremarkable. The liver, spleen, pancreas, gallbladder, adrenals and kidneys are within normal limits. No evidence of aortic aneurysm. No lymphadenopathy. No bowel obstruction or bowel wall thickening. There is no evidence to suggest acute appendicitis. Images through the pelvis were performed. Urinary bladder unremarkable. There is a 5.7 x 4.7 cm mass posterior to the uterus, likely lower uterine segment exophytic/pedunculated fibroid.. No ascites. Pr obable chronic T12 compression deformity versus Schmorl's noted. Impression: 5.7 x 4.7 cm posterior pelvic mass is most likely an exophytic/calculated fibroid. No other significant findings. Reviewed, dictated and finalized at location M. [facility] RO[facility] HELPER Impression: 5.7 x 4.7 cm posterior pelvic mass is most likely an exophytic/calculated fibro id. No other significant findings.
== END 2024-08-03 09:50 | disposition home or self-care (01) ==
PROVIDERS: PCP Family Medicine; Visit Provider Family Medicine
DX: R11.2 Nausea with vomiting, unspecified (principal); G90.9 Disorder of the autonomic nervous system, unspecified; G35 Multiple sclerosis
CPT/HCPCS: 74177; Q9967

== ENCOUNTER 2024-12-16 08:18 | Emergency (ER) | payer BC, SELFPAY ==
--- OUTSIDE RECORDS SUMMARY | 2024-12-16 08:23 | XMS_ITS | Referral Summary ---
Author Organization [facility], [facility] Address [address] [place] [address] Care Team Providers Care Draw Machine Operator Name Role Phone Harinder Aguilar MD Primary Care Provider [phone] Encounters Date Type Department Care Team Description 12/08/2024 9:00 AM CDT Office Visit [facility] 7th [place] [address] Sophia Sosa MD Multiple sclerosis (HCC) (Primary Dx); Immunocompromised state due to drug therapy; High risk medication use 11/09/2024 8:45 AM CDT Office Visit [facility] G[facility] [address] [facility] 12th [place] [address] [place] [phone] Sheree Conley MD Nausea and vomiting, unspecified vomiting type (Primary Dx); Nonintractable episodic headache, unspecified headache type; PFO (patent foramen ovale) 09/29/2024 Telephone [facility] [address] [facility] [address] [place] [address] Alyssia Joe RPh 09/27/2024 Telephone [facility] Multiple S[facility] 7th [place] [address] Elaine Watts RMLucia from Last 3 Months Allergies Active Allergy Reactions Criticality Noted Date Comments Fluconazole Rash Medium 06/14/2024 Quarter size rash on arm. Medications cholecalcifero l (VITAMIN D-3) 2,000 unit tablet take 1 tablet daily Active prochlorperazi ne (COMPAZINE) 10 mg tablet Take 1 tablet (10 mg total) by mouth 2 (two) times a day as needed for nausea or vomiting 20 tablet 4 Active metoclopramide (REGLAN) 10 mg tablet TAKE 1 TABLET BY MOUTH EVERY 6 HOURS NEEDED FOR NAUSEA OR VOMITING 4 Active aspirin 81 mg enteric coated tabletIndicati ons:cerebral ischemia Take 1 tablet (81 mg total) by mouth daily 30 tablet 11 4 025 Active amoxicillin (AMOXIL) 500 mg tablet/capsule Take 4 tablet/capsu le (2,000 mg total) by mouth as needed (Prior to dental procedures) 15 tablet/capsu le 3 4 Active clopidogreL (PLAVIX) 75 mg tabletIndicati ons:post ASD closure Take 1 tablet (75 mg total) by mouth daily 30 tablet 2 5 Active Kesimpta Pen 20 mg/0.4 mL pen injector INJECT THE CONTENTS OF 1 PEN UNDER THE SKIN MONTHLY. 0.4 mL 5 5 Active atorvastatin (LIPITOR) 80 mg tablet Take 1 tablet (80 mg total) by mouth nightly 5 Active famotidine (PEPCID) 20 mg tablet Take 1 tablet (20 mg total) by mouth 2 (two) times a day 4 025 Discontinued Active Problems Problem Noted Date Diagnosed Date PFO (patent foramen ovale) 07/26/2024 Cerebrovascular accident (CVA), unspecified mech anism 01/03/2024 Neurogenic bladder 07/22/2021 Urinary incontinence 07/22/2021 Multiple sclerosis 10/13/2017 Immunizations Immunization Administration Dates Next Due Pfizer SARS-CoV-2 Monovalent Vaccination (12+ Yrs) PURPLE 11/21/2020,10/30/2020 Social History Tobacco Use Types Packs/Day Years Used Date Smoking Tobacco: Never Smokeless Tobacco: Never Tobacco Cessation:Counseling Given: Not Answered AUDIT-C Answer Date Recorded Q1: How often do you have a drink containing alc ohol? 2-4 times a month 08/15/2024 Q2: How many drinks containi ng alcohol do you have on a typical day when you are drinking? 3 or 4 08/15/2024 Q3: How often do you have si x or more drinks on one occasion? Never 08/15/2024 PHQ-2 Answer Date Recorded PHQ-2 Total Score 0 01/03/2024 PHQ-9 Answer Date Recorded PHQ-9 Total Score 0 01/03/2024 Personal Safety Answer Date Recorded Have you ever been in or are you currently in a harmful physical or emotional relationship or is someone making you feel afraid or unsafe? Denies 08/15/2024 Comments No Sex and Gender Information Value Date Recorded Sex Assigned at Not on file Legal Sex Female 12:41 PM MANAGER MENTAL HEALTH Gender Identity Female 11/30/2020 7:34 AM CDT Sexual Orientation Straight 11/30/2020 7: 34 AM CDT Last Filed Vital Signs Vital Sign Reading Time Taken Comments Blood Pressure 114/78 12/08/2024 9:13 AM CDT Pulse 94 12/08/2024 9:13 AM CDT Temperature 36.5 C (97.7 F) 11/09/2024 9:14 AM CDT Respiratory Rate 19 08/15/2024 5:10 PM MANAGER MENTAL HEALTH Oxygen Saturation 100% 09/08/2024 11:29 AM MANAGER MENTAL HEALTH Inhaled Oxygen Concentration - - Weight 73.5 kg (162 lb) 12/08/2024 9:13 AM CDT Height 182.2 cm (5' 11.75 ) 12/08/2024 9:13 AM C DT Body Mass Index 22.12 12/08/2024 9:13 AM CDT Plan of Treatment Not on file Medical Devices Implanted Type Area Bilingual Research Interviewer Device Identifier Shelf Expiration Date Model / Serial / Lot Ibrahim Vascular System Closure Repair Femoral Artery Suture Mediated Perclose Prostyle 49630-95 - [id number] - [id number] Implanted:Qty: 1 on 08/15/2024 by Rodolfo Mccall MD PhD at [facility] Vascular Closure Device Left: Femoral Vein [employer] 03/30/2026 [id number] / [id number] / [id number] Ibrahim Vascular System Closure Repair Femoral Artery Suture Mediated Perclose Prostyle 50807-54 - [id number] - [id number] Implanted:Qty: 1 on 08/15/2024 by Rodolfo Mccall MD PhD at [facility] Vascular Occlusion Device Right: Femoral Vein [employer] 03/30/2026 [id number] / [id number] / [id number] [employer] [place] 30mm Soft Wire Frame Fluoroscopic Image Septal Occluder [id number] - [id number] - [id number] Implanted:Qty: 1 on 08/15/2024 by Rodolfo Mccall MD PhD at [facility] Vascular Occlusion Device N/A: Atrial Septal Defect Wl [employer] 01/29/2026 [id number] / [id number] / [id number] Procedures Procedure Name Priority Date/Time Associated Diagnosis Comments T- AND B-LYMPHOCYTE/KACIE KILLER Routine 12/08/2024 10:53 AM CDT Multiple sclerosis (HCC) Immunocompromised state due to drug therapy High risk medication use IMMUNOGLOBULINS Routine 12/08/2024 10:53 AM CDT Multiple sclerosis (HCC) Immunocompromised state due to drug therapy High risk medication use COMPREHENSIVE METABOLIC PANEL Routine 12/08/2024 10:53 AM CDT Multiple sclerosis (HCC) Immunocompromised state due to drug therapy High risk medication use HEPATITIS C ANTIBODY Routine 09/16/2022 12:30 PM MANAGER MENTAL HEALTH Multiple sclerosis (HCC) High risk medication use Encounter for screening for viral disease from Last 3 Months or Most Recently Relevant to Health Maintenance Results * IMMUNOGLOBULINS (12/08/2024 10:53 AM CDT) [facility] Immunoglobulin G, Qn, Serum 1,014 586 - 1,602 mg/dL [facility] - 01 Immunoglobulin A, Qn, Serum 195 87 - 352 mg/dL [facility] - 01 Immunoglobulin M, Qn, Serum 144 26 - 217 mg/dL [facility] - 01 Blood 12/08/2024 10:5 3 AM CDT 12/08/2024 Narrative [facility] - 12/09/2024 8:11 AM CDT Performed at: [facility] [id number] Packing Attendant: Sam Brady PhD, Phone: [phone] us Sophia Sosa MD LAB BLOOD ORDERABLES Final Resul t [facility] - 01 * (ABNORMAL) T- and B-Lymphocyte/Kacie Killer (12/08/2024 10:53 AM CDT) Abs.CD19+ Lymphs 0(L) 12 - 645 /uL [facility] - 01 % CD19+ Lymphs 0.0(L) 3.3 - 25.4 % [facility] - 01 Absolute CD 3 1,108 622 - 2,402 /uL [facility] - 01 % CD 3 Pos. Lymph. 85.2 57.5 - 86.2 % [facility] - 01 CD4 cells 689 359 - 1,519 /uL [facility] - 01 CD4 % 53.0 30.8 - 58.5 % [facility] - 01 Abs. CD 8 Suppressor 369 109 - 897 /uL [facility] - 01 % CD 8 Pos. Lymph. 28.4 12.0 - 35.5 % [facility] - 01 CD4/CD8 Ratio 1.87 0.92 - 3.72 [facility] - 01 Ab NK (CD56/16) 186 24 - 406 /uL [facility] - 01 % NK (CD56/16) 14.3 1.4 - 19.4 % [facility] - 01 WBC 6.1 3.4 - 10.8 x10E3/uL [facility] - 01 RBC 4.14 3.77 - 5.28 x10E6/uL [facility] - 01 Hgb 12.6 11.1 - 15.9 g/dL [facility] - 01 Hct 38.0 34.0 - 46.6 % [facility] - 01 MCV 92 79 - 97 fL [facility] - 01 MCH 30.4 26.6 - 33.0 pg [facility] - 01 MCHC 33.2 31.5 - 35.7 g/dL [facility] - 01 Rdw 12.6 11.7 - 15.4 % [facility] - 01 Platelets 252 150 - 450 x10E3/uL [facility] - 01 Neutrophils pct 67 Not Estab. % [facility] - 01 Lymphs pct 22 Not Estab. % [facility] - 01 Monocytes pct 8 Not Estab. % [facility] - 01 Eosinophils pct 1 Not Estab. % [facility] - 01 Basophil pct 1 Not Estab. % [facility] - 01 Neutrophil abs 4.1 1.4 - 7.0 x10E3/uL [facility] - 01 Lymphs (Absolute) 1.3 0.7 - 3.1 x10E3/uL [facility] - 01 Monocyte abs 0.5 0.1 - 0.9 x10E3/uL [facility] - 01 Eosinophils, abs 0.1 0.0 - 0.4 x10E3/uL [facility] - 01 Basophils, abs 0.0 0.0 - 0.2 x10E3/uL [facility] - 01 Immature Granulocytes 1 Not Estab. % [facility] - 01 Immature Grans (Abs) 0.0 0.0 - 0.1 x10E3/uL [facility] - 01 Blood 12/08/2024 10:5 3 AM CDT 12/08/2024 Narrative [facility] - 12/09/2024 5:09 PM CDT Performed at: - [address] [id number] Packing Attendant: Sam Brayd PhD, Phone: [phone] us Sophia Sosa MD LAB BLOOD ORDERABLES [facility]ul t [facility] - 01 * Comprehensive metabolic panel (12/08/2024 10:53 AM CDT) [facility] Glucose 87 70 - 99 mg/dL [facility] - 01 BUN 11 6 - 24 mg/dL [facility] - 01 Creatinine, Serum 0.83 0.57 - 1.00 mg/dL [facility] - 01 eGFR 87 >59 mL/min/1.73 [facility] - 01 BUN/creat ratio 13 9 - 23 [facility] - 01 Sodium 138 134 - 144 mmol/L [facility] - 01 Potassium, sr 4.1 3.5 - 5.2 mmol/L [facility] - 01 Chloride 104 96 - 106 mmol/L [facility] - 01 CO2 22 20 - 29 mmol/L [facility] - 01 Calcium 9.3 8.7 - 10.2 mg/dL [facility] - 01 Protein, sr 6.7 6.0 - 8.5 g/dL [facility] - 01 Albumin 4.4 3.9 - 4.9 g/dL [facility] - 01 Globulin, Total 2.3 1.5 - 4.5 g/dL [facility] - 01 Bilirubin, Total 0.5 0.0 - 1.2 mg/dL [facility] - 01 Alk phos 60 44 - 121 IU/L [facility] - 01 AST 18 0 - 40 IU/L [facility] - 01 ALT 12 0 - 32 IU/L [facility] - 01 Blood 12/08/2024 10:5 3 AM CDT 12/08/2024 Narrative [facility] - 12/09/2024 8:11 AM CDT Performed at: [address] [place] [id number] Packing Attendant: Sam Brady PhD, Phone: [phone] us Sophia Sosa MD LAB BLOOD ORDERABLES Final Resul t [facility] * Hepatitis C antibody (09/16/2022 12:30 PM MANAGER MENTAL HEALTH) [facility] Hep C Ab <0.1 0.0 - 0.9 s/co ratio [facility] - 01 Comment: Negative: < 0.8 Indeterminate: 0.8 - 0.9 Positive: > 0.9 HCV antibody alone does not differentiate between previous resolved infection and active infection. The CDC and current clinical guidelines recommend that a positive HCV antibody result be followed up with an HCV RNA test to support the diagnosis of acute HCV infection. [facility] offers Hepatitis C Virus (HCV) RNA, Diagnosis, JONNY (934457) and Hepatitis C Virus (HCV) Antibody with reflex to Quantitative Real-time PCR ([id number]). Blood 09/16/2022 12:3 0 PM MANAGER MENTAL HEALTH 09/16/2022 Narrative [facility] - 09/17/2022 8:16 AM MANAGER MENTAL HEALTH Performed at: 01 - [facility] [address] [id number] Packing Attendant: Sam Brady PhD, Phone: [phone] Sophia Sosa MD LAB MICROBIOLOGY - GENERAL ORDER SCOTT Final Result [facility] - 01 from Last 3 Months or Most Recently Relevant to Health Maintenance Insurance [employer] [place] [employer] H[employer]PPO Address: [address] [place] [address] [place] Advance Directives For more information, please contact: [phone] * Full Code (Latest Code Status on File) Date Activated Date Inactivated Comments 08/15/2024 3:23 PM 08/15/2024 11:00 PM * Full Code Date Activated Date Inactivated Comments 07/25/2024 10:51 AM 07/26/2024 4:48 AM * Full Code Date Activated Date Inactivated Comments 01/03/2024 7:49 AM 01/03/2024 7:18 PM Care Teams Draw Machine Operator Relationship Specialty Start Date End Date Harinder Aguilar MD PCP - General 08/10/17
--- OUTSIDE RECORDS SUMMARY | 2024-12-16 08:23 | XMS_ITS | Clinical Summary ---
Author Organization [facility] Address [address] [place] [address] Care Team Providers Care Back Tender Name Role Phone Harinder Aguilar MD Primary Care Provider [phone] Allergies Active Allergy Reactions Criticality Noted Date [...] tablet (80 mg total) by mouth nightly Active famotidine (PEPCID) 20 mg tablet Take 1 tablet (20 mg total) by mouth 2 (two) times a day 025 Discontinued Active Problems Problem Noted Date Diagnosed Date PFO (patent foramen ovale) 07/26/2024 Cerebrovascular accident (CVA), unspecified mech anism 01/03/2024 Neurogenic bladder 07/22/2021 Urinary incontinence 07/22/2021 Multiple sclerosis 10/13/2017 Encounters Date Type Department Care Team Description 12/08/2024 9:00 AM CDT Office Visit [facility] Multiple Sclerosis [facility] 7th [place] [phone] Sophia Sosa MD Multiple sclerosis (HCC) (Primary Dx); Immunocompromised state due to drug therapy; High risk medication use 11/09/2024 8:45 AM CDT Office Visit [facility] Gastroenterology [address] [facility] 12th [place] [address] [place] [address] Sheree Conley MD Nausea and vomiting, unspecified vomiting type (Primary Dx); Nonintractable episodic headache, unspecified headache type; PFO (patent foramen ovale) 09/29/2024 Telephone [facility] [address] [facility] [address] [place] [address] Alyssia Joe [facility] 09/27/2024 Telephone [facility] Multiple Sclerosis [address] [place] [address] [address] [place] [phone] Elaine Watts RMA from Last 3 Months Immunizations Immunization Administration Dates Next Due Pfizer SARS-CoV-2 Monovalent Vaccination (12+ Yrs) PURPLE 11/21/2020,10/30/2020 Medical History Medical History Date Comments Multiple sclerosis (HCC) Stroke (HCC) 5-24 Autoimmune disease Multiple Sclerosis PFO (patent foramen ovale) Family History Medical History Relation Name Comments Multiple sclerosis Cousin Family hi story of multiple sclerosis - (Added by TW Conv) Asthma Father Bunny Diabetes Father Bunny Family history of diabetes mellitus - (Added by TW Conv) Stroke Father Bunny Cancer Mother Shannon Uterine cancer Mother Shannon Family histor y of malignant neoplasm of uterus - (Added by TW Conv) Relation Name Status Comments Cousin Father Bunny Mother Shannon Social History Tobacco Use Types Packs/Day Years [...] on file Legal Sex Female 12:41 PM WOMEN NURSE Gender Identity Female 11/30/2020 7:34 AM CDT Sexual Orientation Straight 11/30/2020 7: 34 AM CDT Obstetrics History Last Filed Vital Signs Vital Sign Reading Time Taken Comments Blood Pressure 114/78 12/08/2024 9:13 AM CDT Pulse 94 12/08/2024 9:13 AM CDT Temperature 36.5 C (97.7 F) 11/09/2024 9:14 AM CDT Respiratory Rate 19 08/15/2024 5:10 PM WOMEN NURSE Oxygen Saturation 100% 09/08/2024 11:29 AM WOMEN NURSE Inhaled Oxygen Concentration - - Weight 73.5 kg (162 lb) 12/08/2024 9:13 AM CDT Height 182.2 cm (5' 11.75 ) 12/08/2024 9:13 AM C DT Body Mass Index 22.12 12/08/2024 9:13 AM CDT Plan of Treatment Health Maintenance Due Date Last Done Comments Breast Cancer Screening-Mammogram 1976 Cervical Cancer Screening 1976 Colon Cancer Screening-Colonoscopy 1976 DTaP/Tdap/Td Vaccine (1 - Tdap) 12/18/1987 Regular Well Visit/Exam 18-64 1994 Pneumococcal vaccine <65 (1 of 2 - PCV) 12/18/1995 Zoster Vaccine (1 of 2) 12/18/1995 Covid-19 Vaccine (5 - 2023-2 5 season) 2024 07/10/2022, 07/20/2021, 11/21/2020, Additional history exists Depression Screening 01/02/2025 01/03/2024, 01/03/20 Influenza Vaccine (Season Ended) 2025 Hepatitis B Screening Completed 09/16/2022 Hepatitis C Screening Completed 09/16/2022 Medical Devices Implanted Type Area Press Service Reader Device Identifier Shelf Expiration Date Model / Serial / Lot Ibrahim Vascular System Closure Repair Femoral Artery Suture Mediated Perclose Prostyle 28668-31 - [id number] - [id number] Implanted:Qty: 1 on 08/15/2024 by Rodolfo Mccall MD PhD at [facility] Vascular Closure Device Left: Femoral Vein [employer] 03/30/2026 [id number] / [id number] / [id number] [employer] Vascular System Closure Repair Femoral Artery Suture Mediated Perclose Prostyle 35008-61 - [id number] - [id number] Implanted:Qty: 1 on 08/15/2024 by Rodolfo Mccall MD PhD at [facility] Vascular Occlusion Device Right: Femoral Vein [employer] 03/30/2026 [id number] / [id number] / [id number] [place] [employer] [place] 30mm Soft Wire Frame Fluoroscopic Image Septal Occluder [id number] - [id number] - [id number] Implanted:Qty: 1 on 08/15/2024 by Rodolfo Mccall MD PhD at [facility] Vascular Occlusion Device N/A: Atrial Septal Defect Wl [place] [employer] 01/29/2026 [id number] / [id number] / [id number] Procedures Procedure Name Priority Date/Time Associated Diagnosis Comments T- AND B-LYMPHOCYTE/MIRA KILLER Routine 12/08/2024 10:53 AM CDT Multiple [...] HEPATITIS C ANTIBODY Routine 09/16/2022 12:30 PM WOMEN NURSE Multiple sclerosis (HCC) High risk medication use Encounter for screening for viral disease from Last 3 Months or Most Recently Relevant to Health Maintenance Results * IMMUNOGLOBULINS (12/08/2024 10:53 AM CDT) [facility] Immunoglobulin G, Qn, Serum 1,014 586 - 1,602 mg/dL [facility] - 01 Immunoglobulin A, Qn, Serum 195 87 - 352 mg/dL [facility] - 01 Immunoglobulin M, Qn, Serum 144 26 - 217 mg/dL [facility] - 01 Blood 12/08/2024 10:5 3 AM CDT 12/08/2024 Narrative [facility] - 12/09/2024 8:11 AM CDT Performed at: [address] [place] [id number] Laboratory Mechanic Helper: Sam Brady PhD, Phone: [phone] us Sophia Sosa MD LAB BLOOD ORDERABLES Final [facility]ul t [facility] - [facility] * (ABNORMAL) T- and B-Lymphocyte/Mira Killer (12/08/2024 10:53 AM CDT) [facility] Abs.CD19+ Lymphs 0(L) 12 - 645 /uL [...] - 12/09/2024 5:09 PM CDT Performed at: [address] [place] [id number] Laboratory Mechanic Helper: Sam Brady PhD, Phone: [phone] us Sophia Sosa MD LAB BLOOD ORDERABLES Final Resul t [facility] - 01 * Comprehensive metabolic panel (12/08/2024 10:53 AM CDT) [facility] Glucose 87 70 - 99 mg/dL [facility] [...] - 12/09/2024 8:11 AM CDT Performed at: [address] [place] [id number] Laboratory Mechanic Helper: Sam Brady PhD, Phone: [phone] Sophia Sosa MD LAB BLOOD ORDERABLES Final Resul t Performing Organization Address [facility] de Phone Number [facility] - * Hepatitis C antibody (09/16/2022 12:30 PM WOMEN NURSE) [facility] Hep C Ab <0.1 0.0 - 0.9 s/co ratio [facility] - Comment: Negative: < 0.8 Indeterminate: 0.8 - 0.9 Positive: > 0.9 HCV antibody alone does not differentiate between previous resolved infection and active infection. The CDC and current clinical guidelines recommend that a positive HCV antibody result be followed up with an HCV RNA test to support the diagnosis of acute HCV infection. [facility] offers Hepatitis C Virus (HCV) RNA, Diagnosis, JONNY ([id number]) and Hepatitis C Virus (HCV) Antibody with reflex to Quantitative Real-time PCR ([id number]). Blood 09/16/2022 12:3 0 PM WOMEN NURSE 09/16/2022 Narrative [facility] - 09/17/2022 8:16 AM WOMEN NURSE Performed at: [address] [place] [id number] Laboratory Mechanic Helper: Sam Brady PhD, Phone: [phone] Sophia Sosa MD LAB MICROBIOLOGY - GENERAL ORDER SCOTT Final Result Performing Organization Address [facility] Co de Phone Number [facility] - from Last 3 Months or Most Recently Relevant to Health Maintenance Insurance [facility] 5o9 OPEN ACCESS [employer] [place] Advance Directives For more information, please contact: [phone] * Full Code (Latest Code Status on File) Date Activated Date Inactivated Comments 08/15/2024 3:23 PM 08/15/2024 11:00 PM * Full Code Date Activated Date Inactivated Comments 07/25/2024 10:51 AM 07/26/2024 4:48 AM * Full Code Date Activated Date Inactivated Comments 01/03/2024 7:49 AM 01/03/2024 7:18 PM Care Teams Back Tender Relationship Specialty Start Date End Date Harinder Aguilar MD PCP - General 08/10/17
--- OUTSIDE RECORDS SUMMARY | 2024-12-16 08:23 | XMS_ITS | Clinical Summary ---
Author Organization [employer] [facility] Address [address] [place] [address] Phone Care Team Providers Care Airbrush Artist Photography Name Role Phone Harinder Aguilar MD Primary Care Provider [phone] Allergies Active Allergy Reactions Criticality Noted Date Comments Fluconazole Unknown 11/30/2015 Medications NORETHINDRONE AC-ETH ESTRADIOL (MICROGESTIN 09/19, , ORAL) Take 1 Tablet by mouth daily. Active OTHERIndication s:Cleansmore (herbal laxative) 1 time daily as needed Provider please include Medication name, dose, route and frequency . Active traZODone (DESYREL) 50 mg tabletIndicatio ns:Multiple sclerosis (CMS/HCC) Take 1 Tablet (50 mg) by mouth daily at bedtime. 30 Tablet 3 7 Active MICROGESTIN FE , 1 mg-20 mcg (21)/75 mg (7) tablet 7 Active COPAXONE 40 mg/mL Syringe Inject 1 mL (40 mg) by subcutaneous injection every Thursday, Thursday, and Thursday. 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 Copaxone 40 mg TIW 12/20/15- Present Family History Medical History Relation Name Comments Diabetes Father Stroke Father Alzheimer's Disease Maternal Grandfather Cancer Mother Heart Disease Paternal Grandfather Relation Name Status Comments Brother Alive Father Maternal Grandfather Mother Paternal Grandfather Social History Tobacco Use Types Packs/Day Years Used Date Smoking Tobacco: Never Smokeless Tobacco: Never Alcohol Use Standard Drinks/Week Comments Yes 0 (1 standard drink = 0.6 oz pur e alcohol) Comments No Sex and Gender Information Value Date Recorded Sex Assigned at Not on file Legal Sex Female 10:24 AM INSIDE SALES LEAD Gender Identity Not on file Sexual Orientation Not on file Last Filed Vital Signs Vital Sign Reading Time Taken Comments Blood Pressure 117/75 03/31/2017 3:45 PM CDT Pulse 67 03/31/2017 3:45 PM CDT Temperature 36.9 C (98.5 F) 12/20/2015 2:27 PM CDT Respiratory Rate - - Oxygen Saturation - - Inhaled Oxygen Concentration - - Weight 88.4 kg (194 lb 12.8 oz) 03/31/2017 3:45 PM CDT Height 182.9 cm (6') 03/31/2017 3:45 PM CDT Body Mass Index 26.42 03/31/2017 3:45 PM CDT Plan of Treatment Health Maintenance Due Date Last Done Comments DTAP/TDAP/TD VACCINES (1 - Tdap) 12/18/1995 HEPATITIS B VACCINES (1 of 3 - 19+ 3-dose series) 12/18/1995 HPV/Cotest (21-29) 1997 CERVICAL CANCER SCREENING 2006 HPV/Cotest (30-65) 2006 PAP SMEAR 2006 BREAST CANCER SCREENING 2016 COLORECTAL SCREENING 2021 Colorectal Cancer Screening 2021 FIT-DNA Q 3 years 2021 FIT/FOBT Q 1 year 2021 Flex Sig/CT Colonography Q 5 years 2021 INFLUENZA VACCINE (#1) 2024 COVID-19 Vaccine (2023- season) 2024, 10/30/2020 Insurance [facility] Care Teams Airbrush Artist Photography Relationship Specialty Start Date End Date Harinder Aguilar MD PCP - General Family Practice 11/30/15
[2024-12-16 08:34] VITALS: BP 131/85; PULSE 88; RESP 30; TEMP 37.1; O2SAT 100
[2024-12-16 08:55] LABS: Basophils Percent Auto 0.3 % (0.2-1.2); Eosinophils Percent Auto 0.4 % (0-4.4); Hematocrit 47.5 % (37.0-47.0); Hemoglobin 15.3 g/dL (12.0-15.0); Immature Granulocyte Absolute 0.05 K/mm3 (0.00-0.031); Immature Granulocyte Percent A 0.5 % (0-0.5); Lymphocytes Absolute Auto 2.14 K/mm3 (0.9-3.2); Lymphocytes Percent Auto 19.4 % (18.3-44.2); Mean Corpuscular HGB Conc 32.2 g/dl (32-36); Mean Corpuscular Hemoglobin 30.4 pg (26-34); Mean Corpuscular Volume 94.4 fl (80-100); Mean Platelet Volume 9.2 fl (7.4-10.4); Monocytes Absolute Auto 0.9 K/mm3 (0.1-0.6); Monocytes Percent Auto 8.1 % (2.6-8.5); Neutrophils Absolute Auto 7.9 K/mm3 (1.3-6.7); Neutrophils Percent Auto 71.3 % (45.5-73.1); Platelet Count Result 310 k/mm3 (150-375); Red Blood Count 5.03 M/mm3 (4.2-5.4); Red Cell Distribution Width 13.3 % (11.5-14.5); White Blood Count 11.1 K/mm3 (4.5-10.0)
[2024-12-16] MEDS: KETOROLAC 30 MG/ML VIAL (*BKC) IV PUSH (08:55)
[2024-12-16] MEDS: SODIUM CHLORIDE 0.9% IV 1,000 ML 150 ML IV CONT (08:55)
[2024-12-16] MEDS: ONDANSETRON INJ 4 MG/2 ML VIAL IV PUSH (08:55)
[2024-12-16 08:56] VITALS: PULSE 78
[2024-12-16 09:13] LABS: Add Urine Microscopic? YES; Appearance Urine Turbid (Clear); Bacteria Urine None Seen /hpf; Bilirubin Urine 1+ (Negative); Blood Urine 3+ (Negative); Color Urine Dark Yellow (Yellow); Glucose Urine UA Negative (Negative); Ketones Urine 1+ mg/dL (Negative); Leukocyte Esterase Ur Negative LEU/UL (Negative); Need Manual Microscopic Reviewed; Nitrate Urine Negative (Negative); Non Pathogenic Casts >20; Protein Urine 2+ mg/dL (Negative); RBC Urine 51-100 /hpf (0-2); Specific Grav Ur 1.029 (1.001-1.035); Squamous Epithelial Cell Urine Occasional /hpf (Few); WBC Urine 0-5 /hpf (0-3); pH Urine 5.5 (5.0-9.0)
--- OUTSIDE RECORDS SUMMARY | 2024-12-16 09:29 | XMS_ITS | Referral Summary ---
Author Organization [facility] Address [address] [place] [address] Care Team Providers Care Smoking Pipes Cleaner Name Role Phone Harinder Aguilar MD Primary Care Provider [phone] [phone] Encounters Date Type Department Care Team Description 12/08/2024 9:00 AM CDT Office Visit [facility] Multiple Sclerosis [facility] [facility] 7th [place] [address] Sophia Sosa MD Multiple sclerosis (HCC) (Primary Dx); Immunocompromised state due to drug therapy; High risk medication use 11/09/2024 8:45 AM CDT Office Visit [facility] Gastroenterology [address] [facility] [address] 12th [place] [address] [place] [phone] Sheree Conley MD Nausea and vomiting, unspecified vomiting type (Primary Dx); Nonintractable episodic headache, unspecified headache type; PFO (patent foramen ovale) 09/29/2024 Telephone [facility] [address] [place] [address] Alyssia Joe RPh 09/27/2024 Telephone [facility] Multiple Sclerosis [facility] 7th [place] [address] Elaine Watts RMLucia from Last [...] on file Legal Sex Female 12:41 PM PLYWOOD STOCK GRADER Gender Identity Female 11/30/2020 7:34 AM CDT Sexual Orientation Straight 11/30/2020 7: 34 AM CDT Last Filed Vital Signs Vital Sign Reading Time Taken Comments Blood Pressure 114/78 12/08/2024 9:13 AM CDT Pulse 94 12/08/2024 9:13 AM CDT Temperature 36.5 C (97.7 F) 11/09/2024 9:14 AM CDT Respiratory Rate 19 08/15/2024 5:10 PM PLYWOOD STOCK GRADER Oxygen Saturation 100% 09/08/2024 11:29 AM PLYWOOD STOCK GRADER Inhaled Oxygen Concentration - - Weight 73.5 kg (162 lb) 12/08/2024 9:13 AM CDT Height 182.2 cm (5' 11.75 ) 12/08/2024 9:13 AM C DT Body Mass Index 22.12 12/08/2024 9:13 AM CDT Plan of Treatment Not on file Medical Devices Implanted Type Area Senior Electronics Engineer Device Identifier Shelf Expiration Date Model / Serial / Lot Ibrahim Vascular System Closure Repair Femoral Artery Suture Mediated Perclose Prostyle 08311-06 - [id number] - [id number] Implanted:Qty: 1 on 08/15/2024 by Rodolfo Mccall MD PhD at [facility] Vascular Closure Device Left: Femoral Vein [employer] 03/30/2026 85640-54 / [id number] / [id number] Ibrahim Vascular System Closure Repair Femoral Artery Suture Mediated Perclose Prostyle 02779-45 - [id number] - [id number] Implanted:Qty: 1 on 08/15/2024 by Rodolfo Mccall MD PhD at [facility] Vascular Occlusion Device Right: Femoral Vein Ibrahim V[employer] 03/30/2026 [id number] / [id number] / [id number] [employer] Fairton 30mm Soft Wire Frame Fluoroscopic Image Septal Occluder [id number] - [id number] - [id number] Implanted:Qty: 1 on 08/15/2024 by Roodlfo Mccall MD PhD at [facility] Vascular Occlusion Device N/A: Atrial Septal Defect Wl [employer] 01/29/2026 [id number] / [id number] / [id number] Procedures Procedure Name Priority Date/Time Associated Diagnosis [...] HEPATITIS C ANTIBODY Routine 09/16/2022 12:30 PM PLYWOOD STOCK GRADER Multiple sclerosis (HCC) High risk medication use Encounter for screening for viral disease from Last 3 Months or Most Recently Relevant to Health Maintenance Results * IMMUNOGLOBULINS (12/08/2024 10:53 AM CDT) [facility] Immunoglobulin G, Qn, Serum 1,014 586 - 1,602 mg/dL [facility] - 01 Immunoglobulin A, Qn, Serum 195 87 - 352 mg/dL [facility] - 01 Immunoglobulin M, Qn, Serum 144 26 - 217 mg/dL [facility] - 01 Blood 12/08/2024 10:5 3 AM CDT 12/08/2024 Narrative [facility] - 12/09/2024 8:11 AM CDT Performed at: [facility] [id number] Organic Chemist: Sam Brady PhD, Phone: [phone] us Sophia Sosa MD LAB BLOOD ORDERABLES [...] 12/09/2024 5:09 PM CDT Performed at: - [address] [id number] Organic Chemist: Sam Brady PhD, Phone: [phone] us Sophia Sosa MD LAB BLOOD ORDERABLES Final [facility]ul t [facility] - 01 * Comprehensive metabolic panel (12/08/2024 10:53 AM CDT) [facility] Glucose 87 70 - 99 mg/dL [facility] [...] - 12/09/2024 8:11 AM CDT Performed at: [address] [place] [id number] Organic Chemist: Sam Brady PhD, Phone: [phone] us Sophia Sosa MD LAB BLOOD ORDERABLES Final Resul t [facility] * Hepatitis C antibody (09/16/2022 12:30 PM PLYWOOD STOCK GRADER) [facility] Hep C Ab <0.1 0.0 - 0.9 [...] support the diagnosis of acute HCV infection. [facility] offers Hepatitis C Virus (HCV) RNA, Diagnosis, JONNY (738317) and Hepatitis C Virus (HCV) Antibody with reflex to Quantitative Real-time PCR ([id number]). Blood 09/16/2022 12:3 0 PM PLYWOOD STOCK GRADER 09/16/2022 Narrative [facility] - 09/17/2022 8:16 AM PLYWOOD STOCK GRADER Performed at: 01 - [facility] [address] [id number] Organic Chemist: Sam Brady PhD, Phone: [phone] Sophia Sosa MD LAB MICROBIOLOGY - GENERAL ORDER SCOTT Final Result [facility] - 01 from Last 3 Months or Most Recently Relevant to Health Maintenance Insurance [employer] [place] [employer] [place] Advance Directives For more information, please contact: [phone] * Full Code (Latest Code Status on File) Date Activated Date Inactivated Comments 08/15/2024 3:23 PM 08/15/2024 11:00 PM * Full Code Date Activated Date Inactivated Comments 07/25/2024 10:51 AM 07/26/2024 4:48 AM * Full Code Date Activated Date Inactivated Comments 01/03/2024 7:49 AM 01/03/2024 7:18 PM Care Teams Smoking Pipes Cleaner Relationship Specialty Start Date End Date Harinder Aguilar MD PCP - General 08/10/17
--- OUTSIDE RECORDS SUMMARY | 2024-12-16 09:29 | XMS_ITS | Clinical Summary ---
Author Organization [facility] Address [address] [place] [address] Care Team Providers Care Medical Detail Representative Name Role Phone Harinder Aguilar MD Primary Care Provider [phone] [phone] Allergies Active Allergy Reactions Criticality Noted Date [...] Description 12/08/2024 9:00 AM CDT Office Visit [facility] Multiple Sclerosis [facility] 7th [place] [phone] Sophia Sosa MD Multiple sclerosis (HCC) (Primary Dx); Immunocompromised state due to drug therapy; High risk medication use 11/09/2024 8:45 AM CDT Office Visit [facility] Gastroenterology [address] 12th [place] [address] Sheree Conley MD Nausea and vomiting, unspecified vomiting type (Primary Dx); Nonintractable episodic headache, unspecified headache type; PFO (patent foramen ovale) 09/29/2024 Telephone [facility] [address] [place] [phone] Alyssia Joe [facility] 09/27/2024 Telephone [facility] Multiple Sclerosis [address] [place] [address] [address] [place] [phone] Elaine Watts RMA from Last 3 Months [...] on file Legal Sex Female 12:41 PM ITEM REPAIR MANAGER Gender Identity Female 11/30/2020 7:34 AM CDT Sexual Orientation Straight 11/30/2020 7: 34 AM CDT Obstetrics History Last Filed Vital Signs Vital Sign Reading Time Taken Comments Blood Pressure 114/78 12/08/2024 9:13 AM CDT Pulse 94 12/08/2024 9:13 AM CDT Temperature 36.5 C (97.7 F) 11/09/2024 9:14 AM CDT Respiratory Rate 19 08/15/2024 5:10 PM ITEM REPAIR MANAGER Oxygen Saturation 100% 09/08/2024 11:29 AM ITEM REPAIR MANAGER Inhaled Oxygen Concentration - - Weight 73.5 [...] Completed 09/16/2022 Medical Devices Implanted Type Area Hay Baler Device Identifier Shelf Expiration Date Model / Serial / Lot Ibrahim Vascular System Closure Repair Femoral Artery Suture Mediated Perclose Prostyle 27946-27 - [id number] - [id number] Implanted:Qty: 1 on 08/15/2024 by Rodolfo Mccall MD PhD at [facility] Vascular Closure Device Left: Femoral Vein [employer] 03/30/2026 20392-31 / [id number] / [id number] Ibrahim Vascular System Closure Repair Femoral Artery Suture Mediated Perclose Prostyle 88387-40 - [id number] - [id number] Implanted:Qty: 1 on 08/15/2024 by Rodolfo Mccall MD PhD at [facility] Vascular Occlusion Device Right: Femoral Vein [employer] 03/30/2026 [id number] / [id number] / [id number] [employer] Minden 30mm Soft Wire Frame Fluoroscopic Image Septal Occluder [id number] - [id number] - [id number] Implanted:Qty: 1 on 08/15/2024 by Rodolfo Mccall MD PhD at [facility] Vascular Occlusion Device N/A: Atrial Septal Defect Wl [employer] 01/29/2026 [id number] / [id number] / [id number] Procedures Procedure Name Priority Date/Time Associated Diagnosis [...] HEPATITIS C ANTIBODY Routine 09/16/2022 12:30 PM ITEM REPAIR MANAGER Multiple sclerosis (HCC) High risk medication use Encounter for screening for viral disease from Last 3 Months or Most Recently Relevant to Health Maintenance Results * IMMUNOGLOBULINS (12/08/2024 10:53 AM CDT) [facility] Immunoglobulin G, Qn, Serum 1,014 586 - 1,602 mg/dL [facility] - 01 Immunoglobulin A, Qn, Serum 195 87 - 352 mg/dL [facility] - 01 Immunoglobulin M, Qn, Serum 144 26 - 217 mg/dL [facility] - 01 Blood 12/08/2024 10:5 3 AM CDT 12/08/2024 Narrative [facility] - 12/09/2024 8:11 AM CDT Performed at: [address] [place] [id number] E D Tech: Sam Brady PhD, Phone: [phone] us Sophia Sosa MD LAB BLOOD ORDERABLES Final Resul t [facility] - 01 * (ABNORMAL) T- and B-Lymphocyte/Mira Killer (12/08/2024 10:53 AM CDT) [facility] Abs.CD19+ Lymphs 0(L) 12 - 645 [...] - 12/09/2024 5:09 PM CDT Performed at: [address] [place] [id number] E D Tech: Sam Brady PhD, Phone: [phone] us Sophia Sosa MD LAB BLOOD ORDERABLES Final Resul t [facility] - 01 * Comprehensive metabolic panel (12/08/2024 10:53 AM CDT) [facility] Glucose 87 70 - 99 mg/dL [...] - 12/09/2024 8:11 AM CDT Performed at: [address] [place] [id number] E D Tech: Sam Brady PhD, Phone: [phone] Sophia Sosa MD LAB BLOOD ORDERABLES Final Resul t Performing Organization Address [facility] de Phone Number [facility] - * Hepatitis C antibody (09/16/2022 12:30 PM ITEM REPAIR MANAGER) [facility] Hep C Ab <0.1 0.0 - 0.9 s/co ratio [facility] - Comment: Negative: < 0.8 Indeterminate: 0.8 - 0.9 Positive: > 0.9 HCV antibody alone does not differentiate between previous resolved infection and active infection. The CDC and current clinical guidelines recommend that a positive HCV antibody result be followed up with an HCV RNA test to support the diagnosis of acute HCV infection. [facility] offers Hepatitis C Virus (HCV) RNA, Diagnosis, JONNY ([id number]) and Hepatitis C Virus (HCV) Antibody with reflex to Quantitative Real-time PCR ([id number]). Blood 09/16/2022 12:3 0 PM ITEM REPAIR MANAGER 09/16/2022 Narrative [facility] - 09/17/2022 8:16 AM ITEM REPAIR MANAGER Performed at: [address] [place] [id number] E D Tech: Sam Brady PhD, Phone: [phone] Sophia Sosa MD LAB MICROBIOLOGY - GENERAL ORDER SCOTT Final Result Performing Organization Address [facility] Co de Phone Number [facility] - from Last 3 Months or Most Recently Relevant to Health Maintenance Insurance [facility] [employer] ACCESS [employer] [place] Advance Directives For more information, please contact: [phone] * Full Code (Latest Code Status on File) Date Activated Date Inactivated Comments 08/15/2024 3:23 PM 08/15/2024 11:00 PM * Full Code Date Activated Date Inactivated Comments 07/25/2024 10:51 AM 07/26/2024 4:48 AM * Full Code Date Activated Date Inactivated Comments 01/03/2024 7:49 AM 01/03/2024 7:18 PM Care Teams Medical Detail Representative Relationship Specialty Start Date End Date Harinder Aguilar MD PCP - General 08/10/17
--- OUTSIDE RECORDS SUMMARY | 2024-12-16 09:29 | XMS_ITS | Clinical Summary ---
Author Organization 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
[2024-12-16 09:41] LABS: Lactic Acid Reflex 3.5 mmol/L (0.7-2.0)
[2024-12-16 09:41] LABS: Alanine Aminotransferase 26 U/L (6-35); Albumin Level 4.9 g/dL (3.5-5.1); Alkaline Phosphatase 73 U/L (38-126); Anion Gap 16 mmol/L (4-12); Aspartate Amino Transferase 29 U/L (14-36); Blood Urea Nitrogen 18 mg/dL (7-17); Calcium 9.2 mg/dL (8.4-10.2); Carbon Dioxide 19 mmol/L (22-30); Chloride 99 mmol/L (98-107); Estimated CRCL calculation 70 ml/min; Estimated Glomerular Filt Rate > 60; Glucose 141 mg/dL (65-110); Lipase 126 U/L (23-300); Potassium 3.1 mmol/L (3.4-5.0); Sodium 134 mmol/L (137-145)
[2024-12-16] MEDS: SODIUM CHLORIDE 0.9% IV 1,000 ML 999 ML IV CONT (10:45)
[2024-12-16 10:48] VITALS: BP 143/98; PULSE 66; RESP 18; O2SAT 100
[2024-12-16 11:24] LABS: Reflex Lactic Acid Yes or No Add Lactic
[2024-12-16 12:11] LABS: Lactic Acid 1.8 mmol/L (0.7-2.0)
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
== END 2024-12-16 12:55 | disposition home or self-care (01) ==
PROVIDERS: Emergency Provider Family Medicine; PCP Family Medicine
DX: K52.9 Noninfective gastroenteritis and colitis, unspecified (principal); E86.0 Dehydration; I10 Essential (primary) hypertension; E78.5 Hyperlipidemia, unspecified; N31.9 Neuromuscular dysfunction of bladder, unspecified; G35 Multiple sclerosis; Z86.73 Personal history of transient ischemic attack (TIA), and cerebral infarction without residual deficits; Z87.74 Personal history of (corrected) congenital malformations of heart and circulatory system; Z79.82 Long term (current) use of aspirin; Z79.899 Other long term (current) drug therapy
CPT/HCPCS: 36415; 80053; 81001; 83605; 83690; 85025; 96361; 96374; 96375; 99284; J1885; J2405; J7030

== ENCOUNTER 2025-08-09 14:53 | Outpatient (CLI) | payer BC, SELFPAY ==
--- NOTE | ~2025-08-09 | MM_ITS ---
EXAMINATION: MM screening kieran BI w amalia HISTORY: Screening. TECHNIQUE: Craniocaudal and mediolateral oblique 3-D tomosynthesis images were obtained and synthetic 2-D images were generated. CAD analysis was submitted and interpreted. COMPARISON: 2023, 2022, and 2021. BREAST PARENCHYMAL COMPOSITION: Dense: The breasts are extremely dense FINDINGS: There are multiple, bilateral, circumscribed nodules/masses, a benign finding. No suspicious masses are seen. There are no suspicious calcifications. No unexplained architectural distortion is seen. There are no skin or nipple abnormalities identified. There is no adenopathy seen on the images submitted. IMPRESSION: No mammographic evidence to suggest malignancy is seen. The patient may return to screening mammography as per ACR guidelines. BI-RADS 2 - Benign. Reviewed, dictated and finalized at location C. [facility]
--- OUTSIDE RECORDS SUMMARY | 2025-08-09 19:48 | XMS_ITS | Clinical Summary ---
Author Organization [facility] Address [address] [place] [address] Phone Care Team Providers Care Cluster Bore Operator Name Role Phone Harinder Aguilar MD Primary Care Provider [phone]- [phone] Allergies Active Allergy Reactions Criticality Noted Date Comments Fluconazole Unknown 11/30/2015 Medications NORETHINDRONE AC-ETH ESTRADIOL (MICROGESTIN 09/19, , ORAL) Take 1 Tablet by mouth daily. Active OTHERIndication s:Cleansmore (herbal laxative) 1 time daily as needed Provider please include Medication name, dose, route and frequency . Active traZODone (DESYREL) 50 mg tabletIndicatio ns:Multiple sclerosis Take 1 Tablet (50 mg) by mouth daily at bedtime. 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
--- OUTSIDE RECORDS SUMMARY | 2025-08-09 19:48 | XMS_ITS | Encounter Summary ---
Author Organization [facility] Address [address] [place] [address] Phone Care Team Providers Care Vice President Of Instruction Name Role Phone Harinder Aguilar MD Primary Care Provider [phone] [phone] Reason for Visit * Reason Onset Date Comments Jasmin EDMONDSON 08/09/2025 Encounter Details Date Type Department Care Team (Late st Contact Info) Description 08/09/2025 Telephone [facility] Medicine General Neurology [address] [facility] 6th [address] [place] [address] Sophia Sosa MD [address] [place], [place] [id number] Jasmin EDMONDSON Social History Tobacco Use Types Packs/Day Years Used Date Smoking Tobacco: Never Smokeless Tobacco: Never AUDIT-C Answer Date Recorded Q1: How often [...] on file Legal Sex 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 Gender Identity Female 11/30/2020 7:34 AM CDT Sexual Orientation Straight 11/30/2020 7: 34 AM CDT documented as of this encounter Miscellaneous Notes * Telephone Encounter - Mitra Lloyd CMA - 08/09/2025 8:48 AM PROFESSOR OF FINANCE Received PA request via fax from pharmacy Kesimpta 20mg inj ContactMonkey ID: [id number] Initiated PA on CM Diallo: [id number] Submitted PA PENDING Ref number: Effective dates: ESSOR OF FINANCE documented in this encounter Plan of Treatment Not on file documented as of this encounter Visit Diagnoses Not on filedocumented in this encounter Care Teams Vice President Of Instruction Relationship Specialty Start Date End Date Harinder Aguilar MD [facility] [address] [address] PCP - General Family Medicine 06/13/25 documented as of this encounter
--- OUTSIDE RECORDS SUMMARY | 2025-08-09 19:48 | XMS_ITS | Clinical Summary ---
Author Organization [facility] Address [address] [place] [address] Care Team Providers Care Emergency Room Doctor Name Role Phone Harinder Aguilar MD Primary Care Provider [phone] [phone] Allergies Active Allergy Reactions Criticality Noted Date Comments Fluconazole Rash Medium 06/14/2024 Quarter size rash on arm. Medications cholecalciferol (VITAMIN D-3) 2,000 unit tablet take 1 tablet daily Active Kesimpta Pen 20 mg/0.4 mL pen injector Inject 0.4 mL as directed every 28 (twenty-eight ) days 1.2 mL 1 02/27/2025 08/26/20 25 Active Active Problems Problem Noted Date Diagnosed Date PFO (patent foramen ovale) 07/26/2024 Cerebrovascular accident (CVA), unspecified mech anism 01/03/2024 Neurogenic bladder 07/22/2021 Urinary incontinence 07/22/2021 Multiple sclerosis 10/13/2017 Encounters Date Type Department Care Team Description 08/09/[address] [facility] Medicine General Neurology [address] [facility] 6th [address] [place] [id number] Sophia Sosa MD Kesimpta PA 07/24/[address] [facility] Medicine Multiple Sclerosis [address] [facility] [address] [place] [address] Sophia Sosa MD 06/26/[address] [facility] Medicine Multiple Sclerosis [address] [facility] 7th [place] [address] Sophia Sosa MD 06/13/2025 2:00 PM CDT Office Visit [facility] Multiple Sclerosis [address] [facility] 7th [place] [address] Sophia Sosa MD Relapsing remitting multiple sclerosis (Primary Dx); Immunocompromised state due to drug therapy; High risk medication use from Last 3 Months Immunizations Immunization Administration Dates Next Due Pfizer SARS-CoV-2 Monovalent Vaccination (12+ Yrs) PURPLE 11/21/2020,10/30/2020 Medical History Medical History Date Comments Multiple sclerosis Stroke (HCC) 01-03-24 Autoimmune disease Multiple Sclerosis PFO (patent foramen [...] on file Legal 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 Gender Identity Female 11/30/2020 7:34 AM CDT Sexual Orientation Straight 11/30/2020 7: 34 AM CDT Last Filed Vital Signs Vital Sign Reading Time Taken Comments Blood Pressure 112/76 06/13/2025 2:12 PM CDT Pulse 71 06/13/2025 2:12 PM CDT Temperature 36.5 C (97.7 F) 11/09/2024 9:14 AM CDT Respiratory Rate 19 08/15/2024 5:10 PM SANITARY AIDE Oxygen Saturation 100% 03/16/2025 9:55 AM CDT Inhaled Oxygen Concentration - - Weight 75.9 kg (167 lb 4.8 oz) 06/13/2025 2:12 P M CDT Height 180.3 cm (5' 11) 06/13/2025 2:12 PM CDT Body Mass Index 23.33 06/13/2025 2:12 PM CDT Plan of Treatment Health Maintenance Due Date Last Done Comments Breast Cancer Screening-Mammogram 1976 Cervical Cancer Screening 1976 Colon Cancer Screening-Colonoscopy 1976 Regular Well Visit/Exam 18-64 1994 Pneumococcal vaccine <65 (1 of 2 - PCV) 12/18/1995 Zoster Vaccine (1 of 2) 12/18/1995 DTaP/Tdap/Td Vaccine (2 - Td or Tdap) 03/19/2021 03/19/2011 Depression Screening 01/02/2025 01/03/2024, 01/03/20 Covid-19 Vaccine (5 - 2024-2 6 season) 2025 07/10/2022, 07/20/2021, 11/21/2020, Additional history exists Influenza Vaccine (#1) 2025 Hepatitis B Screening Completed 09/16/2022 Hepatitis C Screening Completed 09/16/2022 Medical Devices Implanted Type Area Media Services Specialist Device Identifier Shelf Expiration Date Model / Serial / Lot [employer]brahim Vascular System Closure Repair Femoral Artery Suture Mediated Perclose Prostyle 14250-25 - [id number] - [id number] Implanted:Qty: 1 on 08/15/2024 by Rodolfo Mccall MD PhD at [facility] Vascular Closure Device Left: Femoral Vein [employer] 03/30/2026 [id number] / [id number] / [id number] [employer] V[employer] System Closure Repair Femoral Artery Suture Mediated Perclose Prostyle 26573-41 - [id number] - [id number] Implanted:Qty: 1 on 08/15/2024 by Rodolfo Mccall MD PhD at [facility] Vascular Occlusion Device Right: Femoral Vein [employer] 03/30/2026 [id number] / [id number] / [id number] [employer]stead 30mm Soft Wire Frame Fluoroscopic Image Septal Occluder [id number] - [id number] - [id number] Implanted:Qty: 1 on 08/15/2024 by Rodolfo Mccall MD PhD at [facility] Vascular Occlusion Device N/A: Atrial Septal Defect Wl [employer] 01/29/2026 [id number] / [id number] / [id number] Procedures Procedure Name Priority Date/Time Associated Diagnosis Comments IMMUNOGLOBULINS Routine 06/29/2025 10:27 AM CDT Relapsing remitting multiple sclerosis Immunocompromised state due to drug therapy High risk medication use T- AND B-LYMPHOCYTE/KACIE KILLER Routine 06/29/2025 10:27 AM CDT Relapsing remitting multiple sclerosis Immunocompromised state due to drug therapy High risk medication use COMPREHENSIVE METABOLIC PANEL Routine 06/29/2025 10:27 AM CDT Relapsing remitting multiple sclerosis Immunocompromised state due to drug therapy High risk medication use HEPATITIS C ANTIBODY Routine 09/16/2022 12:30 PM SANITARY AIDE Multiple sclerosis (HCC) High risk medication use Encounter for screening for viral disease from Last 3 Months or Most Recently Relevant to Health Maintenance Results * IMMUNOGLOBULINS (06/29/2025 10:27 AM CDT) Pathologist [facility] Immunoglobulin G, Qn, Serum 1,063 586 - 1,602 mg/dL [facility] - 01 Immunoglobulin A, Qn, Serum 217 87 - 352 mg/dL [facility] - 01 Immunoglobulin M, Qn, Serum 149 26 - 217 mg/dL [facility] - 01 Blood 06/29/2025 10:2 7 AM CDT 06/29/2025 [facility] - 06/30/2025 11:11 AM CDT Performed at: 01 - [facility] [address], [place], [place] [id number] Rest Room Attendant: Sam Brady PhD, Phone: [phone] us Sophia Sosa MD LAB BLOOD ORDERABLES Final Resul t [facility] - 01 * (ABNORMAL) T- and B-Lymphocyte/Kacie Killer (06/29/2025 10:27 AM CDT) Pathologist [facility] Abs.CD19+ Lymphs 2(L) 12 - 645 /uL [facility] - 01 % CD19+ Lymphs 0.1(L) 3.3 - 25.4 % [facility] - 01 Absolute CD 3 1,314 622 - 2,402 /uL [facility] - 01 % CD 3 Pos. Lymph. 87.6(H) 57.5 - 86.2 % [facility] - 01 CD4 cells 813 359 - 1,519 /uL [facility] - 01 CD4 % 54.2 30.8 - 58.5 % [facility] - 01 Abs. CD 8 Suppressor 443 109 - 897 /uL [facility] - 01 % CD 8 Pos. Lymph. 29.5 12.0 - 35.5 % [facility] - 01 CD4/CD8 Ratio 1.84 0.92 - 3.72 [facility] - 01 Ab NK (CD56/16) 168 24 - 406 /uL [facility] - 01 % NK (CD56/16) 11.2 1.4 - 19.4 % [facility] - 01 WBC 5.6 3.4 - 10.8 x10E3/uL [facility] - 01 RBC 4.15 3.77 - 5.28 x10E6/uL [facility] - 01 Hgb 13.0 11.1 - 15.9 g/dL [facility] - 01 Hct 39.3 34.0 - 46.6 % [facility] - 01 MCV 95 79 - 97 fL [facility] - 01 MCH 31.3 26.6 - 33.0 pg [facility] - 01 MCHC 33.1 31.5 - 35.7 g/dL [facility] - 01 Rdw 12.3 11.7 - 15.4 % [facility] - 01 Platelets 318 150 - 450 x10E3/uL [facility] - 01 Neutrophils pct 61 Not Estab. % [facility] - 01 Lymphs pct 26 Not Estab. % [facility] - 01 Monocytes pct 9 Not Estab. % [facility] - 01 Eosinophils pct 3 Not Estab. % [facility] - 01 Basophil pct 1 Not Estab. % [facility] - 01 Neutrophil abs 3.5 1.4 - 7.0 x10E3/uL [facility] - 01 Lymphs (Absolute) 1.5 0.7 - 3.1 x10E3/uL [facility] - 01 Monocyte abs 0.5 0.1 - 0.9 x10E3/uL [facility] - 01 Eosinophils, abs 0.1 0.0 - 0.4 x10E3/uL [facility] - 01 Basophils, abs 0.0 0.0 - 0.2 x10E3/uL [facility] - 01 Immature Granulocytes 0 Not Estab. % [facility] - 01 Immature Grans (Abs) 0.0 0.0 - 0.1 x10E3/uL [facility] - 01 Blood 06/29/2025 10:2 7 AM CDT 06/29/2025 Narrative [facility] - 06/30/2025 5:10 PM CDT Performed at: [address] [id number] Rest Room Attendant: Sam Brady PhD, Phone: [phone] us Sophia Sosa MD LAB BLOOD ORDERABLES [facility] * Comprehensive metabolic panel (06/29/2025 10:27 AM CDT) [facility] Glucose 75 70 - 99 mg/dL [facility] - 01 BUN 17 6 - 24 mg/dL [facility] - 01 Creatinine, Serum 0.90 0.57 - 1.00 mg/dL [facility] - 01 eGFR 79 >59 mL/min/1.73 [facility] - 01 BUN/creat ratio 19 9 - 23 [facility] - 01 Sodium 141 134 - 144 mmol/L [facility] - 01 Potassium, sr 4.5 3.5 - 5.2 mmol/L [facility] - 01 Chloride 103 96 - 106 mmol/L [facility] - 01 CO2 27 20 - 29 mmol/L [facility] - 01 Calcium 9.5 8.7 - 10.2 mg/dL [facility] - 01 Protein, sr 7.1 6.0 - 8.5 g/dL [facility] - 01 Albumin 4.4 3.9 - 4.9 g/dL [facility] - 01 Globulin, Total 2.7 1.5 - 4.5 g/dL [facility] - 01 Bilirubin, Total 0.4 0.0 - 1.2 mg/dL [facility] - 01 Alk phos 64 41 - 116 IU/L [facility] - 01 AST 19 0 - 40 IU/L [facility] - 01 ALT 10 0 - 32 IU/L [facility] - 01 Blood 06/29/2025 10:2 7 AM CDT 06/29/2025 Narrative [facility] - 06/30/2025 8:11 AM CDT Performed at: [address] [id number] Rest Room Attendant: Sam Brady PhD, Phone: [phone] us Sophia Sosa MD LAB BLOOD ORDERABLES Final Resul t [facility] * Hepatitis C antibody (09/16/2022 12:30 PM SANITARY AIDE) Pathologist [facility] Hep C Ab <0.1 0.0 - 0.9 s/co ratio [facility] - Comment: Negative: < 0.8 Indeterminate: 0.8 - 0.9 Positive: > 0.9 HCV antibody alone does not differentiate between previous resolved infection and active infection. The CDC and current clinical guidelines recommend that a positive HCV antibody result be followed up with an HCV RNA test to support the diagnosis of acute HCV infection. [facility] offers Hepatitis C Virus (HCV) RNA, Diagnosis, JONNY (103688) and Hepatitis C Virus (HCV) Antibody with reflex to Quantitative Real-time PCR (905850). Blood 09/16/2022 12:3 0 PM SANITARY AIDE 09/16/2022 Narrative [facility] - 09/17/2022 8:16 AM SANITARY AIDE Performed at: - [facility] [address] [id number] Rest Room Attendant: Sam Brady PhD, Phone: [phone] us Sophia Sosa MD LAB MICROBIOLOGY - GENERAL ORDER SCOTT Final Result [facility] - 01 from Last 3 Months or Most Recently Relevant to Health Maintenance Insurance [employer] Proactive Comfort [facility] Advance Directives For more information, please contact: [phone] * Full Code (Latest Code Status on File) Date Activated Date Inactivated Comments 08/15/2024 3:23 PM 08/15/2024 11:00 PM * Full Code Date Activated Date Inactivated Comments 07/25/2024 10:51 AM 07/26/2024 4:48 AM * Full Code Date Activated Date Inactivated Comments 01/03/2024 7:49 AM 01/03/2024 7:18 PM Care Teams Emergency Room Doctor Relationship Specialty Start Date End Date Harinder Aguilar MD [facility] [address] [address] PCP - General Family Medicine 06/13/25
== END 2025-08-09 14:54 | disposition home or self-care (01) ==
PROVIDERS: PCP Family Medicine; Visit Provider Nurse Practitioner Obstetrics & Gynecology
DX: Z12.31 Encounter for screening mammogram for malignant neoplasm of breast (principal)
CPT/HCPCS: 77063; 77067